=== PATIENT | female | born 1970 | race Caucasian/White ===

== ENCOUNTER 2017-10-01 15:58 | Inpatient (IN) | payer SELFPAY ==
[~2017-10-01] VITALS: Ht 157.5 cm; Wt 61.8 kg
[~2017-10-01 15:58] MED LIST: LACTATED RINGER'S 1000 ML INJ 3,000 ML IV ONE; NORMOSOL R INJ 1,000 ML IV ONE; PHENYLEPH/NS 1000 MCG/10 ML SYR IV ONE; PROPOFOL 200 MG/20 ML AMP IV ONE; SODIUM CHLORID 0.9% 500 ML INJ 1,000 ML IV ONE; SODIUM CHLORIDE 0.9% 20 ML VIAL IV ONE; STERILE WATER FOR INJECTION 20 ML VIAL IV ONE; SUCCINYLCHOLINE CHLORIDE 200 MG/10 ML VIAL IV ONE; VECURONIUM BROMIDE 20 MG VIAL IV ONE
[2017-10-01] MEDS ORDERED: ceFAZolin INJ 1,000 MG VIAL ONE ×2 (16:03→16:09)
[2017-10-01] MEDS ORDERED: DIPHTH/TETANUS/ACEL PERTUSSIS (BOOSTER) 0.5 ML VIAL/PFS IM ONE (16:03)
[2017-10-01] MEDS ORDERED: SODIUM CHLOR 0.9% 250 ML INJ 250 ML ONE (16:04)
[2017-10-01] MEDS ORDERED: PROPOFOL 500 MG/50 ML INJ 50 ML ONE (16:04)
[2017-10-01] MEDS ORDERED: GENTAMICIN 80 MG PREMIX 100 ML ONE (16:09)
[2017-10-01 16:15] VITALS: O2SAT 99
[2017-10-01] MEDS ORDERED: MIDAZOLAM HCL 5 MG/ML VIAL (1 ML) ONE (16:27)
[2017-10-01 16:33] LABS: HEMATOCRIT 33.2 % (35.0-46.0); HEMOGLOBIN 10.9 GM/DL (11.6-15.3); MEAN CELL VOLUME 92.5 FL (80.0-100.0); MEAN CORPUSCULAR HEMOGLOBIN 30.3 PG (27.0-34.0); MEAN CORPUSCULAR HGB CONC 32.7 % (32.0-36.0); MEAN PLATELET VOLUME 7.8 FL (7.0-11.0); PLATELET COUNT 194 TH/MM3 (150-450); RED BLOOD COUNT 3.59 MIL/MM3 (4.00-5.30); RED CELL DISTRIBUTION WIDTH 14.1 % (11.6-17.2); WHITE BLOOD COUNT 11.7 TH/MM3 (4.0-11.0)
[2017-10-01 16:42] LABS: INTERNATIONAL NORMALIZED RATIO 1.1 RATIO; PROTHROMBIN TIME - PATIENT 11.4 SEC (9.8-11.6)
[2017-10-01] MEDS ORDERED: HALOPERIDOL LACTATE 5 MG/ML AMP ONE (16:50)
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
[2017-10-01 17:05] LABS: BANDS 7 % (0-6); LYMPHOCYTES 15 % (9-44); METAMYELOCYTES 1 % (0-1); MONOCYTES 3 % (0-8); NEUTROPHIL # MANUAL DIFF 9.6 TH/MM3 (1.8-7.7); POLYS (SEG NEUTROPHILS) 74 % (16-70)
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
[2017-10-01 17:22] VITALS: BP 140/60; PULSE 114; RESP 18; O2SAT 99
[2017-10-01 17:25] VITALS: BP 140/60; PULSE 116; RESP 18; O2SAT 99
[2017-10-01] MEDS ORDERED: IODIXANOL 320 MG/ML 50 ML VIAL (for RAD SPEC) I-ARTERIAL ONE (17:30)
[2017-10-01] MEDS ORDERED: IOHEXOL 350 MG/ML 10 ML VIAL (for RAD DIAG) IVCONTRAST ONE (17:35)
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
[2017-10-01] MEDS ORDERED: LIDOCAINE 1%/EPINEPHrine 1:100,000 SOLN 30 ML VIAL ONE (17:38)
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
[2017-10-01] MEDS ORDERED: fentaNYL DRIP 250 ML IV PRN (20:00)
[2017-10-01] MEDS ORDERED: PROPOFOL 1000 MG/100 ML INJ 100 ML IV PRN (20:00)
[2017-10-01] MEDS ORDERED: Post-op Orders (for Pharmacy) XX ONE (20:00)
[2017-10-01] MEDS ORDERED: ONDANSETRON HCL 4 MG/2 ML VIAL IV PUSH PRN ×2 (20:00→21:00)
[2017-10-01] MEDS ORDERED: SODIUM CHLORIDE 0.9% FLUSH 10 ML FLUSH IV FLUSH PRN ×2 (20:00→21:00)
[2017-10-01] MEDS ORDERED: NALOXONE HCL 0.4 MG/ML AMP IV PUSH PRN ×2 (20:00→22:00)
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
[2017-10-01] MEDS ORDERED: VANCOMYCIN HCL 1000 MG VIAL ONE (20:12)
--- NOTE | 2017-10-01 20:17 | PD.RAD ---
Post Procedure Progress Note Pre Procedure Diagnosis: (1) Aortic rupture (2) Trauma Post Procedure Diagnosis: (1) Aortic rupture (2) Trauma Procedure Date: Oct 01, 2017 Supervising Radiologist: Junaid Delgado Estimated blood loss: 5cc Anesthesia: General, Local Plan of Activity Patient to Unit: Critical Care Patient Condition: Fair Additional Comments: Acute trauma patient with Ruptured thoracic aorta. Combine procedure with Dr. Bryan. Successful placement of a 24 x12 thoracic graft across the rupture Full dictated report to follow See PACS Report for procedural detail/treatment Junaid Delgado MD Oct 01, 2017 20:17
[2017-10-01] MEDS ORDERED: GENTAMICIN SULFATE 80 MG/2 ML VIAL ONE (20:31)
[2017-10-01] MEDS ORDERED: CHLORHEXIDINE GLUCONATE 2 % 1 PACK (2 CLOTHS) TOP PRN (21:00)
[2017-10-01] MEDS: SODIUM CHLORIDE 0.9% FLUSH 10 ML FLUSH IV FLUSH SCH (21:00)
[2017-10-01] MEDS ORDERED: MISCELLANEOUS NURSING INFORMATION XX SCH (21:00)
[2017-10-01] MEDS ORDERED: ENALAPRILAT 1.25 MG/ML VIAL IV PUSH PRN (21:00)
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
--- NOTE | 2017-10-01 21:04 | MP ---
cc: Caitlyn Bhatia MD DATE OF OPERATION: 10/01/2017 PREOPERATIVE DIAGNOSES: Thoracic aortic disruption, hemorrhagic shock, hemopericardium, hemothorax left. POSTOPERATIVE DIAGNOSES: Thoracic aortic disruption, hemorrhagic shock, hemopericardium, hemothorax left. PROCEDURE: Triple lumen placement, left subclavian. SURGEON: Caitlyn Bhatia MD ANESTHESIA: 1% Xylocaine. DESCRIPTION OF PROCEDURE: The patient was prepped and draped in usual fashion. The area infiltrated with 1% Xylocaine. Needle inserted left subclavian vein. Through the needle a J-wire was passed. Over the J wire dilated triple lumen placed. Triple lumen sutured in place with 2-0 silk. Chest x-ray was obtained. Caitlyn Bhatia MD SJ/rt , 08:15 PM , 09:03 PM
[2017-10-01] MEDS ORDERED: POTASSIUM CHLORIDE 25 MEQ EFFERVESCENT TAB PO PRN (21:15)
[2017-10-01] MEDS ORDERED: ICU - POTASSIUM PHOSPHATE MONOBASIC 500 MG TAB PO PRN (21:15)
[2017-10-01] MEDS ORDERED: ICU - SODIUM PHOSPHATE 30 MMOL/NS 250 ML IV PRN ×2 (21:15)
[2017-10-01] MEDS ORDERED: ICU - CALL ORDERING PHYSICIAN PRN (21:15)
[2017-10-01] MEDS ORDERED: ICU - MAGNESIUM OXIDE 400 MG TAB PO PRN (21:15)
[2017-10-01] MEDS ORDERED: ICU - MAGNESIUM SULFATE 4 GM/NS 100 ML IV PRN ×2 (21:15)
[2017-10-01] MEDS ORDERED: ICU - POTASSIUM PHOSPHATE 30 MMOL/NS 250 ML IV PRN ×2 (21:15)
[2017-10-01] MEDS ORDERED: ICU - MAGNESIUM SULFATE 2 GM/NS 100 ML IV PRN ×2 (21:15)
[2017-10-01] MEDS ORDERED: ICU - POTASSIUM CHLORIDE/AQUEOUS SOLN 20 MEQ/100 ML IVPB IV PRN (21:15)
[2017-10-01] MEDS ORDERED: ICU - POTASSIUM CHLORIDE/AQUEOUS SOLN 40 MEQ/100 ML IVPB IV PRN (21:15)
[2017-10-01] MEDS ORDERED: ICU - D/C ICU ELECTROLYTE ORDERS PRN (21:15)
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
--- NOTE | 2017-10-01 21:47 | PD.OP ---
cc: George Pastor MD Operative Report Date of Surgery: Oct 01, 2017 Preoperative Diagnosis: Right ankle open subtalar and talonavicular joints with irreducible dislocation Postoperative Diagnosis: Same plus calcaneal osteochondral fracture. Procedure: Right ankle/foot arthrotomy of subtalar and talonavicular joints with irrigation and debridement. Right ankle/foot open reduction of subtalar and talonavicular joints. Right calcaneus treatment of fracture with excision of osteochondral fragment. Right ankle application of multiplane external fixator. Surgeon: George Pastor Video Game Programmer(s): MARIBEL Bolaños The surgical procedure was assisted by my Advanced Registered Nurse Practitioner. My SEISMIC PROSPECTING SUPERVISOR presence was necessary throughout this case for the manipulation and positioning of the surgical extremity. My SEISMIC PROSPECTING SUPERVISOR was assisting me throughout the duration of this procedure. The skill set of an Advance Registered Nurse Practitioner was medically necessary to complete this procedure. During the surgical case, the safety tech was working at the back table and the Advance Registered Nurse Practitioner was directly assisting me. Operation and Findings: The patient had early been intubated. We were moving forward with emergency surgery based on a 2 physician consent since the patient was unable to provide consent herself. The patient was brought directly from special interventions where there was doing life-saving work on her aorta to the operating room for emergency management of the irreducible open dislocations as described above. The patient was given intravenous antibiotics to include Ancef, gentamicin, and vancomycin. On reviewing the exam of the ankle there was minimal contamination noted around the wound. The talus was still visible through the medial wound. The right lower extremity was prepped and draped in usual sterile fashion. We made further incision through the laceration that was on the medial aspect of the ankle. This laceration was approximately 10 cm. It was in a complex pattern. But mostly transverse was noted. We dissected more anteriorly as we knew this would be the area that was creating the irreversible dislocation. Arthrotomy of the talonavicular joint and subtalar joint was performed and revealed open dislocation of the talonavicular joint and subtalar joint. As we exposed the subtalar joint we found a fracture of the calcaneus that concluded cartilage and underlying bone. This measured 1 cm x 0.5 cm this was excised and was not replaced. We used a laparotomy pad to locally debride tissues. We identified venous structures anteriorly. We identified that the posterior tibial tendon and the flexor digitorum longus tendons were dislocated anteriorly around the talar neck. The flexor pollicis longus tendon was in its confed[place] sal[place] position. The talar head was buttonholed through the anterior retinaculum as well. We thoroughly irrigated the open joints and all of the soft tissues. We relocated the 2 dislocated tendons back into position. We found that the dislocations were still irreducible. We paid more attention at this point to the retinaculum and identified the buttonholing. We used a Brewster elevator to maneuver the soft tissue around the talar head. This then created anatomic reduction of the open dislocations. We verified this under fluoroscopy. We irrigated the foot and ankle again. We then identified significant traumatic rupture of the extensor retinaculum was the dislocations were reduced. The dislocations were unstable to manual testing and therefore we decided to move forward with external fixation. We placed 2 half pins in the tibia under standard technique. We placed a trans-calcaneal pin under standard technique. We placed a half pin into the first metatarsal on the fluoroscopic guidance. Pin depths were good. We then created a multiplanar external fixator by placing out dicer operator on the tibial half pins and creating parallel carbon fiber rods on the medial and lateral aspect of the ankle. We used another carbon fiber karolina in a different angular pattern compared to the other rods and secured this to the first metatarsal half pin. This helped keep the ankle out of equinus. The ankle was in neutral position in all planes. Final fluoroscopic imaging was obtained. We then closed the medial wound with a combination of 2-0 Monocryl and 3-0 nylon. Postoperative plan is for 3 days of intravenous antibiotics for the open fracture dislocations. She'll been initially nonweightbearing. We would expect the use of the frame for approximately 4-6 weeks depending on clinical course. George Pastor MD Oct 01, 2017 21:47
--- NOTE | 2017-10-01 21:49 | MP ---
cc: Caitlyn Bhatia MD, Slobodan MD DATE OF OPERATION: 10/01/2017 PREOPERATIVE DIAGNOSIS: Thoracic aortic disruption, hemothorax. POSTOPERATIVE DIAGNOSIS: Thoracic aortic disruption, hemothorax. PROCEDURE PERFORMED: Left tube thoracostomy. SURGEON: Caitlyn Bhatia MD. ANESTHESIA: General. ESTIMATED BLOOD LOSS: Minimal. DESCRIPTION OF PROCEDURE: The patient was prepped and draped in usual fashion. The area infiltrated with 1% Xylocaine. Needle incision made in the mid axillary line, sixth intercostal space, and deepened down to the chest. A 28-Marshallese chest tube placed, sutured in place with 0 silk and about 600 mL of blood was obtained. The patient tolerated the procedure well. Dressing applied. MD STEPHANIE Glover//diana , 08:14 PM , 09:10 PM
[2017-10-01] MEDS ORDERED: MORPHINE SULFATE 4 MG/ML INJ IV PUSH PRN (22:00)
[2017-10-01] MEDS ORDERED: diphenhydrAMINE HCL 25 MG CAP PO PRN (22:00)
[2017-10-01] MEDS ORDERED: ACETAMINOPHEN/HYDROcodone 325 MG/5 MG TAB PO PRN (22:00)
[2017-10-01] MEDS ORDERED: ONDANSETRON HCL 4 MG/2 ML VIAL IVP PRN (22:00)
--- NOTE | 2017-10-01 22:17 | RADRPT ---
EXAM DATE/TIME: 10/01/2017 21:09 [facility] COMPARISON: TIBIA/FIBULA RIGHT ( 1 VW), October 01, 2017, 15:51. ANKLE RIGHT LIMITED (AP&LAT), October 01, 2017, 15: 51. CT THORAX W CONTRAST, October 01, 2017, 16:52. INDICATIONS : Right ankle open reduction and internal fixation and external fixation. MEDICAL HISTORY : Unresponsive. SURGICAL HISTORY : Unresponsive. ENCOUNTER: Initial ACUITY: 1 day PAIN SCORE: Non-responsive. LOCATION: Right Ankle. FINDINGS: 7 images from the OR have been submitted. The ankle and subtalar joint appear well aligned. The patie nt is in an external fixator. CONCLUSION: Successful reduction of the previously seen subtalar dislocation. Olman Guaman MD on October 01, 2017 at 22:04 Board Certified Radiologist. This report was verified electronically.
[2017-10-01 22:30] VITALS: O2SAT 100
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
[2017-10-01] MEDS ORDERED: DO NOT ADM ANY ANTICOAGULANT DRUGS PRN (22:45)
[2017-10-01] MEDS ORDERED: MIDAZOLAM HCL 2 MG/2 ML VIAL ONE (22:46)
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
[2017-10-01] MEDS: PANTOPRAZOLE SODIUM 40 MG VIAL IV PUSH SCH (23:00)
[2017-10-01] MEDS: SODIUM CHLOR 0.9% 1000 ML INJ 1,000 ML IV SCH (23:15)
[2017-10-01] MEDS: PROPOFOL 1000 MG/100 ML IV PRN (23:27)
[2017-10-01] MEDS ORDERED: MORPHINE SULFATE 2 MG/ML SYRINGE ONE (23:38)
[2017-10-02] VITALS (21 sets, daily range): BP systolic 93–159; BP diastolic 43–69; PULSE 57–103; RESP 16–26; TEMP 97.6–99.4; O2SAT 98–100
[2017-10-02] MEDS ORDERED: MORPHINE SULFATE 2 MG/ML SYRINGE ONE ×2 (04:18→06:38)
--- NOTE | 2017-10-02 04:50 | RADRPT ---
EXAM DATE/TIME: 10/02/2017 04:19 [facility] COMPARISON: CHEST SINGLE AP, October 01, 2017, 15:51. INDICATIONS : Shortness of breath, possible pulmonary disease. MEDICAL HISTORY : None. SURGICAL HISTORY : None. ENCOUNTER: Subsequent ACUITY: 2 days PAIN SCORE: Non-responsive. LOCATION: Bilateral chest FINDINGS: Single AP view of the chest. Endotracheal tube is in place with the tip 2 cm above mariella. Nasogastri c tube is in place with the tip in the stomach. Descending thoracic aortic stent in place. Left-sided chest tube in place. Mild left lung base atelectasis. Lungs otherwise clear. No evidence of pneumoth orax or pleural effusion. CONCLUSION: 1. Descending aortic stent now in place. 2. Endotracheal tube, nasogastric tube, left-sided chest tube now seen. No evidence of pneumothorax. 3. Mild left lung base atelectasis. Mitch Taylor MD on October 02, 2017 at 4:47 Board Certified Radiologist. This report was verified electronically.
[2017-10-02] MEDS ORDERED: POTASSIUM CHLOR 20 MEQ PREMIX 100 ML IV PRN ×2 (06:15)
[2017-10-02] MEDS ORDERED: MAGNESIUM OXIDE 400 MG TAB PO PRN (06:15)
[2017-10-02] MEDS ORDERED: MAGNESIUM SULFATE INJ 4 GM in SODIUM CHLORIDE 0.9% INJ 92 ML IV PRN (06:15)
[2017-10-02] MEDS ORDERED: SODIUM PHOSPHATE INJ 30 MMOL in SODIUM CHLOR 0.9% 250 ML INJ 240 ML IV PRN (06:15)
[2017-10-02] MEDS ORDERED: POTASSIUM PHOSPHATE INJ 30 MMOL in SODIUM CHLOR 0.9% 250 ML INJ 250 ML IV PRN (06:15)
[2017-10-02] MEDS ORDERED: POTASSIUM CHLORIDE 25 MEQ EFFERVESCENT TAB PO PRN (06:15)
[2017-10-02] MEDS ORDERED: MAGNESIUM SULFATE INJ 2 GM in SODIUM CHLORIDE 0.9% INJ 96 ML IV PRN (06:15)
[2017-10-02] MEDS ORDERED: BISACODYL 10 MG SUPP RECTAL PRN (06:15)
[2017-10-02] MEDS ORDERED: POTASSIUM CHLOR 40 MEQ PREMIX 100 ML IV PRN ×2 (06:15)
[2017-10-02] MEDS ORDERED: POTASSIUM PHOSPHATE MONOBASIC 500 MG TAB PO/TUBE PRN (06:15)
[2017-10-02] MEDS ORDERED: POTASSIUM PHOSPHATE MONOBASIC 500 MG TAB PO PRN (06:15)
[2017-10-02] MEDS: SODIUM CHLOR 0.9% 1000 ML INJ 1,000 ML IV SCH (07:15)
[2017-10-02] MEDS: RESP: ALBUTEROL 2.5 MG/IPRATROPIUM 0.5 MG NEB (SCH) NEB ×4 (07:50→19:57)
[2017-10-02] MEDS: CHLORHEXIDINE 0.12% (ORAL KIT) 15 ML CUP MT SCH ×2 (08:00→20:00)
[2017-10-02 08:37] LABS: AUTOMATED NEUTROPHIL # 7.1 TH/MM3 (1.8-7.7); BASOPHIL % 0.3 % (0.0-2.0); HEMATOCRIT 29.7 % (35.0-46.0); HEMOGLOBIN 10.3 GM/DL (11.6-15.3); LYMPH % 9.6 % (9.0-44.0); LYMPHOCYTE # 0.8 TH/MM3 (1.0-4.8); MEAN CELL VOLUME 89.4 FL (80.0-100.0); MEAN CORPUSCULAR HEMOGLOBIN 31.2 PG (27.0-34.0); MEAN CORPUSCULAR HGB CONC 34.9 % (32.0-36.0); MEAN PLATELET VOLUME 7.6 FL (7.0-11.0); MONO % 8.5 % (0.0-8.0); MONOCYTE # 0.7 TH/MM3 (0-0.9); NEUT % 81.6 % (16.0-70.0); PLATELET COUNT 124 TH/MM3 (150-450); RED BLOOD COUNT 3.32 MIL/MM3 (4.00-5.30); RED CELL DISTRIBUTION WIDTH 14.6 % (11.6-17.2); WHITE BLOOD COUNT 8.7 TH/MM3 (4.0-11.0)
[2017-10-02 08:56] LABS: MAGNESIUM 1.6 MG/DL (1.5-2.5); PHOSPHORUS 3.4 MG/DL (2.5-4.9)
[2017-10-02 09:00] LABS: BICARBONATE 22.2 MEQ/L (21.0-32.0); CALCIUM 6.9 MG/DL (8.5-10.1); CREATININE 0.64 MG/DL (0.50-1.00)
[2017-10-02] MEDS: LACTULOSE SYRUP 20 GM/30 ML CUP PO SCH (09:00)
[2017-10-02] MEDS: BACITRACIN TOP OINT 15 GM TUBE TOP SCH ×2 (09:00→20:27)
[2017-10-02] MEDS: DOCUSATE SODIUM 50 MG/SENNA 8.6 MG TAB PO SCH ×2 (09:00→20:26)
[2017-10-02] MEDS: SODIUM CHLORIDE 0.9% FLUSH 10 ML FLUSH IV FLUSH SCH ×2 (09:00→20:27)
[2017-10-02] MEDS: MULTIVITAMINS/MINERALS THERAPEUTIC TAB PO SCH (09:00)
[2017-10-02 09:36] LABS: CALCIUM-PROTEIN CORRECTED 8.3 MG/DL (8.5-10.1); TOTAL PROTEIN 4.5 GM/DL (6.4-8.2)
[2017-10-02] MEDS ORDERED: LIDOCAINE 2%/EPINEPHrine 1:100,000 20ML MDV OTHER SCH (10:00)
--- NOTE | 2017-10-02 10:01 | PD.ORT.PN ---
Subjective Subjective Remarks The patient is intubated and sedated. There is a family member at the bedside Objective Vitals Vital Signs Date Time Temp Pulse Resp B/P (MAP) Pulse Ox O2 Delivery O2 Flow Rate FiO2 10/02/17 09:11 99 40 10/02/17 08:15 40 10/02/17 08:01 100 40 10/02/17 08:00 62 10 98/55 (69) 100 Mechanical Ventilator 40 109/52 (71) 10/02/17 07:45 64 10 100 Mechanical Ventilator 40 114/55 (74) 10/02/17 07:30 62 10 97/51 (66) 100 Mechanical Ventilator 40 102/46 (64) 10/02/17 07:15 97.7 66 10 105/47 (66) 100 Mechanical Ventilator 40 10/02/17 07:15 40 10/02/17 07:00 64 10 115/58 (77) 100 Mechanical Ventilator 40 112/63 (79) 10/02/17 06:52 65 12 101/48 (65) 100 Mechanical Ventilator 40 10/02/17 06:00 59 108/58 (75) 10/02/17 06:00 74 12 102/54 (70) 100 Mechanical Ventilator 40 10/02/17 06:00 40 10/02/17 05:15 100 40 10/02/17 05:00 66 12 99/61 (74) 100 Mechanical Ventilator 40 10/02/17 05:00 59 108/58 (75) 10/02/17 04:25 59 108/58 (75) 10/02/17 04:01 40 10/02/17 04:00 66 12 104/58 (73) 100 Mechanical Ventilator 40 10/02/17 03:00 59 12 103/61 (75) 100 Mechanical Ventilator 40 10/02/17 03:00 59 108/58 (75) 10/02/17 02:01 40 10/02/17 02:00 65 12 106/54 (71) 100 Mechanical Ventilator 40 10/02/17 02:00 59 108/58 (75) 10/02/17 01:30 100 40 10/02/17 01:00 65 12 105/63 (77) 100 Mechanical Ventilator 40 10/02/17 01:00 60 113/64 (80) 10/02/17 00:00 65 12 122/68 (86) 100 Mechanical Ventilator 40 10/02/17 00:00 40 10/02/17 00:00 64 127/66 (86) 10/01/17 23:45 65 12 124/69 (87) 100 Mechanical Ventilator 40 10/01/17 23:30 65 12 127/70 (89) 100 Mechanical Ventilator 40 10/01/17 23:15 65 14 112/65 (81) 100 Mechanical Ventilator 40 10/01/17 23:00 40 10/01/17 23:00 66 14 95/61 (72) 100 Mechanical Ventilator 40 10/01/17 22:45 98.0 70 11 142/79 (100) 100 Mechanical Ventilator 40 10/01/17 22:30 100 40 10/01/17 18:59 10/01/17 17:25 116 18 140/60 (86) 99 Room Air 10/01/17 17:22 114 18 140/60 (86) 99 10/01/17 16:15 99 2.00 I/O 10/01/17 10/01/17 10/01/17 10/02/17 10/02/17 10/02/17 07:00 15:00 23:00 07:00 15:00 23:00 Intake Total 1025 ml 607.5 ml Output Total 1215 ml 1450 ml 150 ml Balance -190 ml -1450 ml 457.5 ml Intake IV Total 207.5 ml Packed Cells 400 ml Blood Product IV Normal Saline Flush 25 ml Other 1000 ml Output Urine Total 1200 ml 1350 ml 100 ml Gastric Drainage Total 50 ml Chest Tube Drainage Total 100 ml 0 ml Estimated Blood Loss 15 ml Result Diagram: 10/02/17 0713 10/02/17 0713 Other Results Laboratory Tests Test 10/01/17 16:02 Prothromb Time International Ratio 1.1 RATIO Prothrombin Time 11.4 SEC (9.8-11.6) Imaging Last 24 hours Impressions Chest X-Ray 10/02/17 0000 Signed Impressions: Service Date/Time: Monday, October 02, 2017 04:19 - CONCLUSION: 1. Descending aortic stent now in place. 2. Endotracheal tube, nasogastric tube, left-sided chest tube now seen. No evidence of pneumothorax. 3. Mild left lung base atelectasis. Mitch Taylor MD Thoracic Spine CT 10/01/17 1608 Signed Impressions: Service Date/Time: Sunday, October 01, 2017 16:52 - CONCLUSION: 1. Negative thoracic spine CT examination. 2. There is an thoracic aortic injury more fully described in the CT of the chest report. Olman Guaman MD Maxillofacial CT 10/01/171607 Signed Impressions: Service Date/Time: Sunday, October 01, 2017 16:32 - CONCLUSION: 1. Right- sided facial and forehead soft tissue swelling 2. No evidence of acute fracture. 3. Clear, well aerated paranasal sinuses. Marcin Mccord MD Lumbar Spine CT 10/01/171607 Signed Impressions: Service Date/Time: Sunday, October 01, 2017 16:52 - CONCLUSION: 1. No acute fracture of the lumbar spine identified. Junaid Delgado MD Head CT 10/01/171607 Signed Impressions: Service Date/Time: Sunday, October 01, 2017 16:32 - CONCLUSION: 1. Right frontal and parietal scalp injury with soft tissue swelling and cephalhematoma. 2. No evidence of acute intracranial process. No evidence of hemorrhage, mass effect or edema. Marcin Mccord MD Chest CT 10/01/171607 Signed Impressions: Service Date/Time: Sunday, October 01, 2017 16:52 - CONCLUSION: 1. 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 Extravasated contrast extends the entire length of the descending thoracic aorta. Significant mediastinal hematoma is noted. 2. Small hemorrhagic pericardial effusion 3. Left lung contusion versus atelectasis. 4. Left pleural effusion which may represent hemothorax. 5. Multiple right-sided rib fractures. Case discussed with trauma surgeon. Marcin Mccord MD Cervical Spine CT 10/01/171607 Signed Impressions: Service Date/Time: Sunday, October 01, 2017 16:32 - CONCLUSION: 1. No cervical abnormality is seen. However, there is patient motion blurring. 2. Aortic injury. Olman Guaman MD Abdomen/Pelvis CT 10/01/171607 Signed Impressions: Service Date/Time: Sunday, October 01, 2017 16:52 - CONCLUSION: 1. 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 The trauma surgical service is aware of this. Endograft repair of the aorta is pending. 2. There is a small amount hemorrhage within the pericardium. 3. Fracture of the right fifth and sixth ribs. 4. No findings to indicate acute intra-abdominal trauma are evident. Junaid Delgado MD Pelvis X-Ray 10/01/17 1600 Signed Impressions: Service Date/Time: Sunday, October 01, 2017 15:51 - CONCLUSION: No acute disease. Marcin Mccord MD Chest X-Ray 10/01/17 1600 Signed Impressions: Service Date/Time: Sunday, October 01, 2017 15:51 - CONCLUSION: Superior mediastinal widening. Mediastinal hematoma and/or aortic injury needs to be considered. Clear lungs without evidence of pneumothorax. No acute bony injury. Marcin Mccord MD Objective Remarks Intubated. Right lower extremity: External fixator intact, dressings intact with no drainage, compartment soft, brisk capillary refill of all 5 toes, mild swelling of the toes. Secondary survey of left knee and ankle and hip unremarkable. Secondary survey of bilateral elbows wrists and shoulders fairly unremarkable but still difficult to examine very well due to multiple lines and swelling. Assessment & Plan Assessment and Plan Postop day #1 status post right foot/ankle arthrotomy with open reduction of irreducible subtalar and talonavicular dislocation with application of external fixator. Continue with intravenous antibiotics for 3 days for open dislocation. Continue with external fixator for right lower extremity. Continue dressings on right lower extremity. We'll assess the wound in a day or 2. DVT prophylaxis per vascular surgery given recent procedure on aorta. Nonweightbearing to right lower extremity. Continue ice and elevation of right lower extremity. George Pastor MD Oct 02, 2017 10:01
[2017-10-02] MEDS: PROPOFOL 1000 MG/100 ML IV PRN (11:07)
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
[2017-10-02] MEDS ORDERED: SODIUM CHLOR 0.9% 1000 ML INJ 1,000 ML IV SCH (16:30)
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
[2017-10-02] MEDS: ACETAMINOPHEN/HYDROcodone 325 MG/5 MG TAB PO PRN (20:26)
[2017-10-02] MEDS: PANTOPRAZOLE SODIUM 40 MG VIAL IV PUSH SCH (20:27)
[2017-10-02] MEDS: levETIRAcetam INJ 500 MG in SODIUM CHLORIDE 0.9% INJ 100 ML IV SCH (20:27)
[2017-10-02] MEDS: CHLORHEXIDINE GLUCONATE 2 % 1 PACK (2 CLOTHS) TOP SCH (21:38)
[2017-10-03] VITALS (11 sets, daily range): BP systolic 94–137; BP diastolic 50–68; PULSE 88–123; RESP 14–27; TEMP 97.7–101.2; O2SAT 93–100
[2017-10-03] MEDS: ACETAMINOPHEN/HYDROcodone 325 MG/5 MG TAB PO PRN ×4 (00:45→23:46)
[2017-10-03] MEDS: MORPHINE SULFATE 4 MG/ML INJ IV PUSH PRN ×2 (02:34→06:41)
[2017-10-03] MEDS: RESP: ALBUTEROL 2.5 MG/IPRATROPIUM 0.5 MG NEB (SCH) NEB ×4 (03:54→20:30)
--- NOTE | 2017-10-03 05:26 | RADRPT ---
EXAM DATE/TIME: 10/03/2017 04:51 [facility] COMPARISON: CHEST SINGLE AP, October 02, 2017, 4:19. INDICATIONS : Short of breath. MEDICAL HISTORY : None. SURGICAL HISTORY : None. ENCOUNTER: Subsequent ACUITY: 3 days PAIN SCORE: 0/10 LOCATION: Bilateral chest FINDINGS: A single view of the chest demonstrates bilateral airspace disease. Probable bilateral pleural effusi ons. Left-sided chest tube without pneumothorax. Stent graft in the thoracic aorta. Endotracheal tube and nasogastric tube removed. Osseous structures are intact. CONCLUSION: Bilateral airspace disease and probable pleural effusions. Eulalio Abbott MD on October 03, 2017 at 5:23 Board Certified Radiologist. This report was verified electronically.
[2017-10-03 07:02] LABS: AUTOMATED NEUTROPHIL # 10.4 TH/MM3 (1.8-7.7); BASOPHIL % 0.3 % (0.0-2.0); EOSINOPHIL % 0.1 % (0.0-4.0); HEMATOCRIT 28.2 % (35.0-46.0); HEMOGLOBIN 9.8 GM/DL (11.6-15.3); LYMPH % 9.4 % (9.0-44.0); LYMPHOCYTE # 1.2 TH/MM3 (1.0-4.8); MEAN CELL VOLUME 90.4 FL (80.0-100.0); MEAN CORPUSCULAR HEMOGLOBIN 31.3 PG (27.0-34.0); MEAN CORPUSCULAR HGB CONC 34.6 % (32.0-36.0); MEAN PLATELET VOLUME 7.9 FL (7.0-11.0); MONO % 8.4 % (0.0-8.0); MONOCYTE # 1.1 TH/MM3 (0-0.9); NEUT % 81.8 % (16.0-70.0); PLATELET COUNT 119 TH/MM3 (150-450); RED BLOOD COUNT 3.12 MIL/MM3 (4.00-5.30); RED CELL DISTRIBUTION WIDTH 14.5 % (11.6-17.2); WHITE BLOOD COUNT 12.7 TH/MM3 (4.0-11.0)
[2017-10-03 07:12] LABS: BICARBONATE 25.9 MEQ/L (21.0-32.0); CALCIUM 7.7 MG/DL (8.5-10.1); CREATININE 0.7 MG/DL (0.50-1.00)
[2017-10-03] MEDS: CHLORHEXIDINE 0.12% (ORAL KIT) 15 ML CUP MT SCH (08:00)
[2017-10-03] MEDS: levETIRAcetam INJ 500 MG in SODIUM CHLORIDE 0.9% INJ 100 ML IV SCH ×2 (08:06→19:39)
[2017-10-03] MEDS: MULTIVITAMINS/MINERALS THERAPEUTIC TAB PO SCH (08:07)
[2017-10-03] MEDS: LACTULOSE SYRUP 20 GM/30 ML CUP PO SCH (08:07)
[2017-10-03] MEDS: BACITRACIN TOP OINT 15 GM TUBE TOP SCH ×2 (08:07→19:39)
[2017-10-03] MEDS: SODIUM CHLORIDE 0.9% FLUSH 10 ML FLUSH IV FLUSH SCH ×2 (08:07→19:39)
[2017-10-03] MEDS: DOCUSATE SODIUM 50 MG/SENNA 8.6 MG TAB PO SCH ×2 (08:07→19:39)
[2017-10-03] MEDS ORDERED: PADIMATE (CHAPSTICK) 4.5 GM TUBE TOPICAL ONE (10:00)
--- NOTE | 2017-10-03 12:33 | PD.ORT.PN ---
Subjective Post Op Day #: 2 Subjective Remarks Patient OOB in chair with c/o pain to her entire body. Pain is being managed with meds. Family/friends at bedside. Objective Vitals Vital Signs Date Time Temp Pulse Resp B/P (MAP) Pulse Ox O2 Delivery O2 Flow Rate FiO2 10/03/17 08:31 97 10/03/17 08:00 98.5 104 18 131/63 (85) 100 10/03/17 08:00 Nasal Cannula 2.00 10/03/17 06:46 20 10/03/17 04:00 98.4 88 23 112/55 (74) 100 Arterial Line 10/03/17 01:45 20 10/03/17 00:00 101.2 96 23 109/54 (72) 96 124/50 (74) 10/02/17 20:00 Room Air 10/02/17 20:00 85 10/02/17 20:00 99.4 103 22 95/58 (70) 100 159/59 (92) 10/02/17 19:57 99 10/02/17 18:00 94 10/02/17 16:00 100 10/02/17 16:00 97.8 100 26 157/69 (98) 99 10/02/17 14:32 100 Nasal Cannula 2 10/02/17 14:32 100 Nasal Cannula 2.00 10/02/17 14:00 94 10/02/17 13:45 Nasal Cannula 40 I/O 10/02/17 10/02/17 10/02/17 10/03/17 10/03/17 10/03/17 07:00 15:00 23:00 07:00 15:00 23:00 Intake Total 707.5 ml 1105 ml 340 ml Output Total 1450 ml 150 ml 995 ml 1300 ml Balance -1450 ml 557.5 ml 110 ml -960 ml Intake Oral 0 ml 240 ml IV Total 307.5 ml 1105 ml 100 ml Packed Cells 400 ml Output Urine Total 1350 ml 100 ml 725 ml 1300 ml Gastric Drainage Total 50 ml 0 ml Chest Tube Drainage Total 100 ml 0 ml 270 ml 0 ml # Bowel Movements 0 0 Result Diagram: 10/03/1723 10/03/1723 Imaging Last 24 hours Impressions Chest X-Ray 10/02/17 0000 Signed Impressions: Service Date/Time: Monday, October 02, 2017 04:19 - CONCLUSION: 1. Descending aortic stent now in place. 2. Endotracheal tube, nasogastric tube, left-sided chest tube now seen. No evidence of pneumothorax. 3. Mild left lung base atelectasis. Mitch Taylor MD Thoracic Spine CT 10/01/171607 Signed Impressions: Service Date/Time: Sunday, October 01, 2017 16:52 - CONCLUSION: 1. Negative thoracic spine CT examination. 2. There is an thoracic aortic injury more fully described in the CT of the chest report. Olman Guaman MD Maxillofacial CT 10/01/171607 Signed Impressions: Service Date/Time: Sunday, October 01, 2017 16:32 - CONCLUSION: 1. Right- sided facial and forehead soft tissue swelling 2. No evidence of acute fracture. 3. Clear, well aerated paranasal sinuses. Marcin Mccord MD Lumbar Spine CT 10/01/171607 Signed Impressions: Service Date/Time: Sunday, October 01, 2017 16:52 - CONCLUSION: 1. No acute fracture of the lumbar spine identified. Junaid Delgado MD Head CT 10/01/171607 Signed Impressions: Service Date/Time: Sunday, October 01, 2017 16:32 - CONCLUSION: 1. Right frontal and parietal scalp injury with soft tissue swelling and cephalhematoma. 2. No evidence of acute intracranial process. No evidence of hemorrhage, mass effect or edema. Marcin Mccord MD Chest CT 10/01/171607 Signed Impressions: Service Date/Time: Sunday, October 01, 2017 16:52 - CONCLUSION: 1. 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 Extravasated contrast extends the entire length of the descending thoracic aorta. Significant mediastinal hematoma is noted. 2. Small hemorrhagic pericardial effusion 3. Left lung contusion versus atelectasis. 4. Left pleural effusion which may represent hemothorax. 5. Multiple right-sided rib fractures. Case discussed with trauma surgeon. Marcin Mccord MD Cervical Spine CT 10/01/171607 Signed Impressions: Service Date/Time: Sunday, October 01, 2017 16:32 - CONCLUSION: 1. No cervical abnormality is seen. However, there is patient motion blurring. 2. Aortic injury. Olman Guaman MD Abdomen/Pelvis CT 10/01/17 1608 Signed Impressions: Service Date/Time: Sunday, October 01, 2017 16:52 - CONCLUSION: 1. 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 The trauma surgical service is aware of this. Endograft repair of the aorta is pending. 2. There is a small amount hemorrhage within the pericardium. 3. Fracture of the right fifth and sixth ribs. 4. No findings to indicate acute intra-abdominal trauma are evident. Junaid Delgado MD Pelvis X-Ray 10/01/17 1600 Signed Impressions: Service Date/Time: Sunday, October 01, 2017 15:51 - CONCLUSION: No acute disease. Marcin Mccord MD Chest X-Ray 10/01/17 1600 Signed Impressions: Service Date/Time: Sunday, October 01, 2017 15:51 - CONCLUSION: Superior mediastinal widening. Mediastinal hematoma and/or aortic injury needs to be considered. Clear lungs without evidence of pneumothorax. No acute bony injury. Marcin Mccord MD Objective Remarks Patient extubated and talkative. Patient is alert and oriented but does not recall specifics of accident. Right lower extremity: External fixator intact. Dressings changed today. Incisions are well approximated with minimal drainage. Sutures are intact. No redness or s/s of infection. Compartment soft, brisk capillary refill of all 5 toes, mild swelling of the toes. 2 + pedal pulse. Foot is warm. Patient able to move toes. Patient has swelling to the face and head. Multiple areas of ecchymosis. Assessment & Plan Ortho Post Op Day #: 2 Problem List: Assessment and Plan Postop day #2 status post right foot/ankle arthrotomy with open reduction of irreducible subtalar and talonavicular dislocation with application of external fixator. Continue with intravenous antibiotics for 3 days for open dislocation. Continue with external fixator for right lower extremity. Continue with daily dressing changes to the right lower extremity. Verbalized Lovenox for DVT prophylaxis per vascular surgeon. No order in chart. Nurse to f/u to see when to initiate this. Nonweightbearing to right lower extremity. Continue ice and elevation of right lower extremity. Plan is for return to surgery in 4-6 weeks for removal of ex-fix. Junaid Davis Oct 03, 2017 12:33
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
[2017-10-03] MEDS: CHLORHEXIDINE GLUCONATE 2 % 1 PACK (2 CLOTHS) TOP SCH (19:33)
[2017-10-03] MEDS: PANTOPRAZOLE SODIUM 40 MG VIAL IV PUSH SCH (19:55)
[2017-10-04] VITALS (7 sets, daily range): BP systolic 106–131; BP diastolic 56–74; PULSE 81–110; RESP 16–20; TEMP 97.4–98.1; O2SAT 93–100
[2017-10-04 04:45] LABS: AUTOMATED NEUTROPHIL # 9.2 TH/MM3 (1.8-7.7); BASOPHIL % 0.4 % (0.0-2.0); EOSINOPHIL % 0.2 % (0.0-4.0); HEMATOCRIT 26.8 % (35.0-46.0); HEMOGLOBIN 9.4 GM/DL (11.6-15.3); LYMPH % 8.1 % (9.0-44.0); LYMPHOCYTE # 0.9 TH/MM3 (1.0-4.8); MEAN CELL VOLUME 89.6 FL (80.0-100.0); MEAN CORPUSCULAR HEMOGLOBIN 31.5 PG (27.0-34.0); MEAN CORPUSCULAR HGB CONC 35.1 % (32.0-36.0); MEAN PLATELET VOLUME 8.2 FL (7.0-11.0); MONO % 7.2 % (0.0-8.0); MONOCYTE # 0.8 TH/MM3 (0-0.9); NEUT % 84.1 % (16.0-70.0); PLATELET COUNT 111 TH/MM3 (150-450); RED BLOOD COUNT 2.99 MIL/MM3 (4.00-5.30); RED CELL DISTRIBUTION WIDTH 14.4 % (11.6-17.2); WHITE BLOOD COUNT 10.9 TH/MM3 (4.0-11.0)
[2017-10-04 04:46] LABS: BICARBONATE 25.5 MEQ/L (21.0-32.0); CALCIUM 8.2 MG/DL (8.5-10.1); CREATININE 0.59 MG/DL (0.50-1.00)
[2017-10-04] MEDS ORDERED: ACETAMINOPHEN/HYDROcodone 325 MG/10 MG TAB PO PRN (05:45)
[2017-10-04] MEDS: METHOCARBAMOL 500 MG TAB PO SCH ×3 (06:35→22:02)
[2017-10-04] MEDS ORDERED: POTASSIUM CHLORIDE 20 MEQ CONTROLLED RELEASE TAB PO ONE (08:00)
[2017-10-04] MEDS: RESP: ALBUTEROL 2.5 MG/IPRATROPIUM 0.5 MG NEB (SCH) NEB ×4 (08:00→21:10)
[2017-10-04] MEDS: LACTULOSE SYRUP 20 GM/30 ML CUP PO SCH (08:58)
[2017-10-04] MEDS: DOCUSATE SODIUM 50 MG/SENNA 8.6 MG TAB PO SCH ×2 (08:59→22:01)
[2017-10-04] MEDS: BACITRACIN TOP OINT 15 GM TUBE TOP SCH ×2 (09:00→21:00)
[2017-10-04] MEDS: GABAPENTIN 300 MG CAP PO SCH ×3 (09:02→18:42)
[2017-10-04] MEDS: levETIRAcetam 500 MG TAB PO SCH ×2 (09:04→22:02)
[2017-10-04] MEDS: SODIUM CHLORIDE 0.9% FLUSH 10 ML FLUSH IV FLUSH SCH ×2 (09:04→22:08)
[2017-10-04] MEDS: LIDOCAINE HCL 5% PATCH T-DERMAL SCH (09:05)
[2017-10-04] MEDS: MULTIVITAMINS/MINERALS THERAPEUTIC TAB PO SCH (09:08)
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
[2017-10-04] MEDS: ENOXAPARIN SODIUM 40 MG/0.4 ML SYRINGE SQ SCH (13:48)
--- NOTE | 2017-10-04 16:43 | ECHRPT ---
Indication: CONCLUSIONS The left ventricular systolic function is hyperdynamic with an estimated ejection fraction in the ra nge of 65- 70%. No definite wall motion abnormalities. Wall thickness is normal. Normal left ventricular size. There is trace tricuspid valve regurgitation. BP: / HR: Rhythm: Sinus MEASUREMENTS (Male / Female) Normal Values Technical Quality:Good 2D ECHO LV Diastolic Diameter PLAX 3.9 cm 4.2 - 5.9 / 3.9 - 5.3 cm LV Systolic Diameter PLAX 2.7 cm IVS Diastolic Thickness 1.0 cm 0.6 - 1.0 / 0.6 - 0.9 cm LVPW Diastolic Thickness 1.0 cm 0.6 - 1.0 / 0.6 - 0.9 cm LV Relative Wall Thickness 0.5 RV Internal Dim ED PLAX 2.3 cm LVOT Diameter 1.7 cm Aortic Root Diameter 2.4 cm LA Systolic Diameter LX 2.5 cm 3.0 - 4.0 / 2.7 - 3.8 cm M-MODE Aortic Root Diameter MM 1.5 cm LA Systolic Diameter MM 2.5 cm LA Ao Ratio MM 1.7 AV Cusp Separation MM 1.5 cm DOPPLER TR Peak Velocity 128.0 cm/s TR Peak Gradient 6.6 mmHg Right Atrial Pressure 10.0 mmHg Pulmonary Artery Systolic Pressu 16.6 mmHg Right Ventricular Systolic Press 16.6 mmHg PV Peak Velocity 111.0 cm/s PV Peak Gradient 4.9 mmHg FINDINGS LEFT VENTRICLE The left ventricular systolic function is hyperdynamic with an estimated ejection fraction in the ra nge of 65- 70%. No definite wall motion abnormalities. Wall thickness is normal. Normal left ventricular size. RIGHT VENTRICLE Normal right ventricular size and systolic function. LEFT ATRIUM The left atrial size is normal. RIGHT ATRIUM The right atrial size is normal. ATRIAL SEPTUM Normal atrial septal thickness without atrial level shunting by limited color doppler interrogation. AORTA The aortic root and proximal ascending aorta are normal in size on limited imaging. MITRAL VALVE Structurally normal mitral valve. No mitral valve stenosis or regurgitation. AORTIC VALVE Trileaflet aortic valve. No aortic valve stenosis or regurgitation. TRICUSPID VALVE There is trace tricuspid valve regurgitation. PULMONARY VALVE No pulmonary valve regurgitation or stenosis. VESSELS The inferior vena cava is normal in size. PERICARDIUM No pericardial effusion. Torito Matthew MD (Electronically Signed) Final Date:04 October 2017 16:42
--- NOTE | 2017-10-04 18:20 | PD.ORT.PN ---
Subjective Subjective Remarks Pt extubated. Awake. family at bedside. does not complain of other ortho pain about B upper arms or left leg. no numbness to right foot Objective Vitals Vital Signs Date Time Temp Pulse Resp B/P (MAP) Pulse Ox O2 Delivery O2 Flow Rate FiO2 10/04/17 16:00 97.4 107 16 126/63 (84) 99 10/04/17 12:00 97.9 81 16 116/59 (78) 100 10/04/17 08:00 97.8 109 16 131/60 (83) 93 10/04/17 08:00 93 Nasal Cannula 2.00 10/04/17 04:00 98.1 87 18 106/58 (74) 100 10/04/17 00:00 98.0 105 18 124/56 (78) 100 10/03/17 21:25 99.2 98 18 137/65 (89) 100 10/03/17 20:32 100 Nasal Cannula 2.00 10/03/17 20:00 98.2 123 27 133/68 (89) 97 10/03/17 20:00 123 10/03/17 19:00 Nasal Cannula 3.00 I/O 10/03/17 10/03/17 10/03/17 10/04/17 10/04/17 10/04/17 07:00 15:00 23:00 07:00 15:00 23:00 Intake Total 340 ml 205 ml 360 ml 340 ml 100 ml 720 ml Output Total 1300 ml 1900 ml 0 ml Balance -960 ml 205 ml -1540 ml 340 ml 100 ml 720 ml Intake Oral 240 ml 360 ml 240 ml 720 ml IV Total 100 ml 205 ml 100 ml 100 ml Output Urine Total 1300 ml 1900 ml Chest Tube Drainage Total 0 ml 0 ml 0 ml # Voids 1 2 # Bowel Movements 0 0 0 0 Result Diagram: 10/04/17 0313 10/04/17 0313 Imaging Last 24 hours Impressions Chest X-Ray 10/02/17 0000 Signed Impressions: Service Date/Time: Monday, October 02, 2017 04:19 - CONCLUSION: 1. Descending aortic stent now in place. 2. Endotracheal tube, nasogastric tube, left-sided chest tube now seen. No evidence of pneumothorax. 3. Mild left lung base atelectasis. Mitch Taylor MD Thoracic Spine CT 4/7/18 1608 Signed Impressions: Service Date/Time: Sunday, October 01, 2017 16:52 - CONCLUSION: 1. Negative thoracic spine CT examination. 2. There is an thoracic aortic injury more fully described in the CT of the chest report. Olman Guaman MD Maxillofacial CT 10/01/171607 Signed Impressions: Service Date/Time: Sunday, October 01, 2017 16:32 - CONCLUSION: 1. Right- sided facial and forehead soft tissue swelling 2. No evidence of acute fracture. 3. Clear, well aerated paranasal sinuses. Marcin Mccord MD Lumbar Spine CT 10/01/171607 Signed Impressions: Service Date/Time: Sunday, October 01, 2017 16:52 - CONCLUSION: 1. No acute fracture of the lumbar spine identified. Junaid Delgado MD Head CT 10/01/171607 Signed Impressions: Service Date/Time: Sunday, October 01, 2017 16:32 - CONCLUSION: 1. Right frontal and parietal scalp injury with soft tissue swelling and cephalhematoma. 2. No evidence of acute intracranial process. No evidence of hemorrhage, mass effect or edema. Marcin Mccord MD Chest CT 10/01/171607 Signed Impressions: Service Date/Time: Sunday, October 01, 2017 16:52 - CONCLUSION: 1. 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 Extravasated contrast extends the entire length of the descending thoracic aorta. Significant mediastinal hematoma is noted. 2. Small hemorrhagic pericardial effusion 3. Left lung contusion versus atelectasis. 4. Left pleural effusion which may represent hemothorax. 5. Multiple right-sided rib fractures. Case discussed with trauma surgeon. Marcin Mccord MD Cervical Spine CT 10/01/171607 Signed Impressions: Service Date/Time: Sunday, October 01, 2017 16:32 - CONCLUSION: 1. No cervical abnormality is seen. However, there is patient motion blurring. 2. Aortic injury. Olman Guaman MD Abdomen/Pelvis CT 10/01/171607 Signed Impressions: Service Date/Time: Sunday, October 01, 2017 16:52 - CONCLUSION: 1. 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 The trauma surgical service is aware of this. Endograft repair of the aorta is pending. 2. There is a small amount hemorrhage within the pericardium. 3. Fracture of the right fifth and sixth ribs. 4. No findings to indicate acute intra-abdominal trauma are evident. Junaid Delgado MD Pelvis X-Ray 10/01/17 1600 Signed Impressions: Service Date/Time: Sunday, October 01, 2017 15:51 - CONCLUSION: No acute disease. Marcin Mccord MD Chest X-Ray 10/01/17 1600 Signed Impressions: Service Date/Time: Sunday, October 01, 2017 15:51 - CONCLUSION: Superior mediastinal widening. Mediastinal hematoma and/or aortic injury needs to be considered. Clear lungs without evidence of pneumothorax. No acute bony injury. Marcin Mccord MD Objective Remarks Patient extubated and talkative. Patient is alert and oriented but does not recall specifics of accident. Right lower extremity: External fixator intact. No redness or s/s of infection surrounding wound. Compartment soft, brisk capillary refill of all 5 toes, mild swelling of the toes. 2 + pedal pulse. Foot is warm. Patient able to move toes. nl sensation to dorsal and plantar foot Patient has swelling to the face and head. Multiple areas of ecchymosis. Assessment & Plan Assessment and Plan Postop day #3 status post right foot/ankle arthrotomy with open reduction of irreducible subtalar and talonavicular dislocation with application of external fixator. ABX finish today Continue with external fixator for right lower extremity. Continue with daily dressing changes to the right lower extremity, discussed with nursing today Pin Care Lovenox (ordered on chart) Nonweightbearing to right lower extremity. Continue ice and elevation of right lower extremity. Plan is for return to surgery in 4-6 weeks for removal of ex-fix. We will sign off for now. re-consult as necessary. George Pastor MD Oct 04, 2017 18:20
[2017-10-04] MEDS ORDERED: NORC5TAB PO (18:21)
[2017-10-04] MEDS ORDERED: ASPI-183 PO (18:21)
[2017-10-04] MEDS ORDERED: ENOX40IN SQ (18:21)
[2017-10-04] MEDS: REMOVE OLD PATCH-LIDOCAINE T-DERMAL SCH (21:00)
[2017-10-04] MEDS: CHLORHEXIDINE GLUCONATE 2 % 1 PACK (2 CLOTHS) TOP SCH (22:10)
[2017-10-05] VITALS (8 sets, daily range): BP systolic 112–137; BP diastolic 56–76; PULSE 87–110; RESP 15–20; TEMP 97.6–99; O2SAT 96–100
[2017-10-05] MEDS: METHOCARBAMOL 500 MG TAB PO SCH ×3 (06:00→22:03)
--- NOTE | 2017-10-05 07:06 | RADRPT ---
EXAM DATE/TIME: 10/05/2017 06:29 [facility] COMPARISON: CHEST SINGLE AP, October 03, 2017, 4:51. INDICATIONS : Pneumothorax. MEDICAL HISTORY : None. SURGICAL HISTORY : None. ENCOUNTER: Subsequent ACUITY: 4 - 6 days PAIN SCORE: 5/10 LOCATION: Bilateral chest FINDINGS: Cardiomegaly, endovascular stent graft descending aorta. Left-sided chest tube is noted. A small left apical pneumothorax is present. There is patchy airspace disease at the bases and a small right-side d pleural effusion is again noted. CONCLUSION: No significant change has occurred. Subhash Espinosa MD on October 05, 2017 at 7:04 Board Certified Radiologist. This report was verified electronically.
[2017-10-05] MEDS: RESP: ALBUTEROL 2.5 MG/IPRATROPIUM 0.5 MG NEB (SCH) NEB ×4 (08:00→20:01)
[2017-10-05] MEDS: MAGNESIUM HYDROXIDE SUSP 30 ML CUP PO SCH ×2 (08:44→22:03)
[2017-10-05] MEDS: LACTULOSE SYRUP 20 GM/30 ML CUP PO SCH (08:45)
[2017-10-05] MEDS: LIDOCAINE HCL 5% PATCH T-DERMAL SCH (08:46)
[2017-10-05] MEDS: FAMOTIDINE 20 MG TAB PO SCH ×2 (08:46→22:02)
[2017-10-05] MEDS: levETIRAcetam 500 MG TAB PO SCH ×2 (08:46→22:02)
[2017-10-05] MEDS: MULTIVITAMINS/MINERALS THERAPEUTIC TAB PO SCH (08:46)
[2017-10-05] MEDS: GABAPENTIN 300 MG CAP PO SCH ×3 (08:46→17:24)
[2017-10-05] MEDS: DOCUSATE SODIUM 50 MG/SENNA 8.6 MG TAB PO SCH ×2 (08:46→22:02)
[2017-10-05] MEDS: SODIUM CHLORIDE 0.9% FLUSH 10 ML FLUSH IV FLUSH SCH ×2 (08:53→22:02)
[2017-10-05] MEDS: BACITRACIN TOP OINT 15 GM TUBE TOP SCH ×2 (09:34→22:02)
--- NOTE | 2017-10-05 10:11 | HHI.PR ---
Subjective Remarks pod 3 s/p closure of scalp and forehead avulsion flap/laceration -->12 cm from the hairline down to the top of the brow pt seen and examined, nurse at bedside no complaints Objective Vital Signs Date Time Temp Pulse Resp B/P (MAP) Pulse Ox O2 Delivery O2 Flow Rate FiO2 10/05/17 08:00 98.5 87 15 117/63 (81) 100 10/05/17 04:00 98.4 100 20 133/65 (87) 96 10/05/17 00:00 99.0 100 18 112/59 (76) 97 10/04/17 23:47 Nasal Cannula 2.00 10/04/17 21:14 94 Nasal Cannula 2.00 10/04/17 20:00 97.6 110 20 130/74 (92) 95 10/04/17 16:00 97.4 107 16 126/63 (84) 99 10/04/17 12:00 97.9 81 16 116/59 (78) 100 I/O 10/04/17 10/04/17 10/04/17 10/05/17 10/05/17 10/05/17 07:00 15:00 23:00 07:00 15:00 23:00 Intake Total 340 ml 100 ml 720 ml 240 ml Output Total 0 ml 200 ml 440 ml Balance 340 ml 100 ml 520 ml -200 ml Intake Oral 240 ml 720 ml 240 ml IV Total 100 ml 100 ml Output Urine Total 400 ml Chest Tube Drainage Total 0 ml 200 ml 40 ml # Voids 1 2 # Bowel Movements 0 0 0 Result Diagram: 10/04/173 10/04/17 0313 Objective Remarks scalp/ forehead wound well approximated, sutures and cici intact steri strips in place no signs of infection bleeding pus edema tissues pink/well perfused Assessment and Plan Assessment and Plan pod 3 s/p closure of scalp and forehead avulsion flap/laceration -->12 cm from the hairline down to the top of the brow healing well/as expected plan for suture/staple removal next week. Logan Clayton DMD Oct 05, 2017 10:11
[2017-10-05 10:46] LABS: AUTOMATED NEUTROPHIL # 6.1 TH/MM3 (1.8-7.7); BASOPHIL % 0.3 % (0.0-2.0); EOSINOPHIL # 0.1 TH/MM3 (0-0.4); EOSINOPHIL % 0.6 % (0.0-4.0); HEMATOCRIT 25.7 % (35.0-46.0); HEMOGLOBIN 8.9 GM/DL (11.6-15.3); LYMPH % 12.7 % (9.0-44.0); MEAN CELL VOLUME 90.4 FL (80.0-100.0); MEAN CORPUSCULAR HEMOGLOBIN 31.5 PG (27.0-34.0); MEAN CORPUSCULAR HGB CONC 34.8 % (32.0-36.0); MEAN PLATELET VOLUME 7.2 FL (7.0-11.0); MONO % 9.1 % (0.0-8.0); MONOCYTE # 0.7 TH/MM3 (0-0.9); NEUT % 77.3 % (16.0-70.0); PLATELET COUNT 149 TH/MM3 (150-450); RED BLOOD COUNT 2.84 MIL/MM3 (4.00-5.30); RED CELL DISTRIBUTION WIDTH 14.2 % (11.6-17.2); WHITE BLOOD COUNT 7.9 TH/MM3 (4.0-11.0)
[2017-10-05] MEDS: ENOXAPARIN SODIUM 40 MG/0.4 ML SYRINGE SQ SCH (11:05)
[2017-10-05 11:08] LABS: CALCIUM 8.3 MG/DL (8.5-10.1); CREATININE 0.61 MG/DL (0.50-1.00)
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
[2017-10-05] MEDS: REMOVE OLD PATCH-LIDOCAINE T-DERMAL SCH (22:04)
[2017-10-06] VITALS: BP 136/73; PULSE 104; RESP 17; TEMP 99.1; O2SAT 100
[2017-10-06 04:09] LABS: AUTOMATED NEUTROPHIL # 4.3 TH/MM3 (1.8-7.7); BASOPHIL % 0.4 % (0.0-2.0); EOSINOPHIL # 0.1 TH/MM3 (0-0.4); EOSINOPHIL % 0.9 % (0.0-4.0); HEMATOCRIT 25.5 % (35.0-46.0); LYMPH % 21.3 % (9.0-44.0); LYMPHOCYTE # 1.4 TH/MM3 (1.0-4.8); MEAN CELL VOLUME 89.6 FL (80.0-100.0); MEAN CORPUSCULAR HEMOGLOBIN 31.7 PG (27.0-34.0); MEAN CORPUSCULAR HGB CONC 35.4 % (32.0-36.0); MEAN PLATELET VOLUME 6.9 FL (7.0-11.0); MONO % 12.9 % (0.0-8.0); MONOCYTE # 0.9 TH/MM3 (0-0.9); NEUT % 64.5 % (16.0-70.0); PLATELET COUNT 176 TH/MM3 (150-450); RED BLOOD COUNT 2.84 MIL/MM3 (4.00-5.30); RED CELL DISTRIBUTION WIDTH 14.1 % (11.6-17.2); WHITE BLOOD COUNT 6.6 TH/MM3 (4.0-11.0)
[2017-10-06 04:36] LABS: ALBUMIN 2.2 GM/DL (3.4-5.0); ALT (GPT) 44 U/L (10-53); AST (GOT) 39 U/L (15-37); BICARBONATE 31.9 MEQ/L (21.0-32.0); BLOOD UREA NITROGEN 7 MG/DL (7-18); CALCIUM 8.2 MG/DL (8.5-10.1); CHLORIDE 104 MEQ/L (98-107); CREATININE 0.51 MG/DL (0.50-1.00); GLOMERULAR FILTRATION RATE 129 ML/MIN (>89); GLUCOSE,RANDOM 106 MG/DL (74-106); SODIUM (NA) 142 MEQ/L (136-145)
[2017-10-06 04:38] LABS: ALKALINE PHOSPHATASE 129 U/L (45-117); TOTAL BILIRUBIN ADULT 0.6 MG/DL (0.2-1.0)
[2017-10-06] MEDS: METHOCARBAMOL 500 MG TAB PO SCH ×3 (05:38→21:28)
--- NOTE | 2017-10-06 06:14 | RADRPT ---
EXAM DATE/TIME: 10/06/2017 05:09 [facility] COMPARISON: CHEST SINGLE AP, October 05, 2017, 6:29. INDICATIONS : Shortness of breath MEDICAL HISTORY : None. SURGICAL HISTORY : Endovascular stent ENCOUNTER: Initial ACUITY: 1 week PAIN SCORE: Non-responsive. LOCATION: Bilateral chest FINDINGS: A single view of the chest demonstrates bibasilar densities and small right pleural effusion. Left-si ded chest tube and small left apical pneumothorax. Stent graft in the thoracic aorta again seen. Oss eous structures are intact. CONCLUSION: Small left apical pneumothorax. Eulalio Abbott MD on October 06, 2017 at 6:12 Board Certified Radiologist. This report was verified electronically.
[2017-10-06] MEDS ORDERED: BISACODYL 10 MG SUPP RECTAL ONE (07:45)
[2017-10-06] MEDS ORDERED: BISACODYL EC 5 MG TABEC PO ONE (07:45)
[2017-10-06] MEDS ORDERED: PERI PO (07:47)
[2017-10-06] MEDS ORDERED: MAGN30S PO (07:47)
[2017-10-06 07:48] VITALS: BP 112/62; PULSE 87; RESP 16; TEMP 98; O2SAT 100
[2017-10-06] MEDS ORDERED: POTASSIUM CHLORIDE 20 MEQ CONTROLLED RELEASE TAB PO ONE (08:00)
[2017-10-06] MEDS: RESP: ALBUTEROL 2.5 MG/IPRATROPIUM 0.5 MG NEB (SCH) NEB ×4 (08:27→20:00)
[2017-10-06 08:29] VITALS: O2SAT 98
[2017-10-06] MEDS: BACITRACIN TOP OINT 15 GM TUBE TOP SCH ×2 (09:00→21:29)
[2017-10-06] MEDS: GABAPENTIN 300 MG CAP PO SCH ×3 (09:31→18:06)
[2017-10-06] MEDS: DOCUSATE SODIUM 50 MG/SENNA 8.6 MG TAB PO SCH ×2 (09:31→21:28)
[2017-10-06] MEDS: SODIUM CHLORIDE 0.9% FLUSH 10 ML FLUSH IV FLUSH SCH ×2 (09:31→21:28)
[2017-10-06] MEDS: levETIRAcetam 500 MG TAB PO SCH ×2 (09:31→21:28)
[2017-10-06] MEDS: MULTIVITAMINS/MINERALS THERAPEUTIC TAB PO SCH (09:31)
[2017-10-06] MEDS: MAGNESIUM HYDROXIDE SUSP 30 ML CUP PO SCH ×2 (09:32→21:28)
[2017-10-06] MEDS: FAMOTIDINE 20 MG TAB PO SCH ×2 (09:32→21:28)
[2017-10-06] MEDS: LACTULOSE SYRUP 20 GM/30 ML CUP PO SCH (09:32)
[2017-10-06] MEDS: LIDOCAINE HCL 5% PATCH T-DERMAL SCH (09:33)
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
[2017-10-06 12:00] VITALS: BP 110/67; PULSE 89; RESP 16; TEMP 98.1; O2SAT 96
[2017-10-06] MEDS: ENOXAPARIN SODIUM 40 MG/0.4 ML SYRINGE SQ SCH (13:29)
[2017-10-06 15:51] VITALS: BP 133/61; PULSE 104; RESP 16; TEMP 97.8; O2SAT 95
[2017-10-06] MEDS ORDERED: POTASSIUM CHLORIDE 10 MEQ CONTROLLED RELEASE TAB PO ONE (18:00)
[2017-10-06 20:07] VITALS: BP 98/57; PULSE 110; RESP 16; TEMP 97.8; O2SAT 94
[2017-10-06] MEDS: REMOVE OLD PATCH-LIDOCAINE T-DERMAL SCH (21:29)
[2017-10-07 00:56] VITALS: BP 125/63; PULSE 101; RESP 16; TEMP 99.3; O2SAT 92
[2017-10-07] MEDS: METHOCARBAMOL 500 MG TAB PO SCH ×3 (04:45→22:11)
[2017-10-07 05:46] LABS: AUTOMATED NEUTROPHIL # 4.7 TH/MM3 (1.8-7.7); BASOPHIL % 0.4 % (0.0-2.0); EOSINOPHIL # 0.1 TH/MM3 (0-0.4); HEMATOCRIT 27.6 % (35.0-46.0); HEMOGLOBIN 9.6 GM/DL (11.6-15.3); LYMPHOCYTE # 1.1 TH/MM3 (1.0-4.8); MEAN CELL VOLUME 89.5 FL (80.0-100.0); MEAN CORPUSCULAR HEMOGLOBIN 31.3 PG (27.0-34.0); MEAN PLATELET VOLUME 6.8 FL (7.0-11.0); MONO % 13.3 % (0.0-8.0); MONOCYTE # 0.9 TH/MM3 (0-0.9); NEUT % 69.3 % (16.0-70.0); PLATELET COUNT 236 TH/MM3 (150-450); RED BLOOD COUNT 3.08 MIL/MM3 (4.00-5.30); RED CELL DISTRIBUTION WIDTH 14.1 % (11.6-17.2); WHITE BLOOD COUNT 6.8 TH/MM3 (4.0-11.0)
[2017-10-07 06:13] LABS: BICARBONATE 28.7 MEQ/L (21.0-32.0); CALCIUM 8.3 MG/DL (8.5-10.1); CREATININE 0.55 MG/DL (0.50-1.00)
[2017-10-07] MEDS: RESP: ALBUTEROL 2.5 MG/IPRATROPIUM 0.5 MG NEB (SCH) NEB ×4 (07:55→19:44)
[2017-10-07 08:00] VITALS: BP 102/55; PULSE 98; RESP 17; TEMP 98.3; O2SAT 98
[2017-10-07 08:07] VITALS: O2SAT 98
[2017-10-07] MEDS: MAGNESIUM HYDROXIDE SUSP 30 ML CUP PO SCH ×2 (09:58→22:11)
[2017-10-07] MEDS: LACTULOSE SYRUP 20 GM/30 ML CUP PO SCH (09:58)
[2017-10-07] MEDS: DOCUSATE SODIUM 50 MG/SENNA 8.6 MG TAB PO SCH ×2 (09:58→22:11)
[2017-10-07] MEDS: GABAPENTIN 300 MG CAP PO SCH ×3 (09:58→17:56)
[2017-10-07] MEDS: levETIRAcetam 500 MG TAB PO SCH ×2 (09:59→22:11)
[2017-10-07] MEDS: FAMOTIDINE 20 MG TAB PO SCH ×2 (09:59→22:11)
[2017-10-07] MEDS: ENOXAPARIN SODIUM 40 MG/0.4 ML SYRINGE SQ SCH (09:59)
[2017-10-07] MEDS: MULTIVITAMINS/MINERALS THERAPEUTIC TAB PO SCH (09:59)
[2017-10-07] MEDS: LIDOCAINE HCL 5% PATCH T-DERMAL SCH (10:00)
[2017-10-07] MEDS: SODIUM CHLORIDE 0.9% FLUSH 10 ML FLUSH IV FLUSH SCH ×2 (10:01→22:21)
[2017-10-07] MEDS: BACITRACIN TOP OINT 15 GM TUBE TOP SCH ×2 (10:02→22:15)
[2017-10-07 12:00] VITALS: BP 116/64; PULSE 92; RESP 17; TEMP 98; O2SAT 97
--- NOTE | 2017-10-07 12:44 | RADRPT ---
EXAM DATE/TIME: 10/07/2017 11:45 [facility] COMPARISON: CHEST SINGLE AP, October 01, 2017, 15:51. AORTAGRAM, ARCH, October 01, 2017, 0:00. CHEST SINGLE AP, Sep, 5:09. INDICATIONS : Evaluate for pneumothorax due to trauma. MEDICAL HISTORY : Trauma. SURGICAL HISTORY : Chest tube. ENCOUNTER: Subsequent ACUITY: 3 days PAIN SCORE: 8/10 LOCATION: Bilateral chest FINDINGS: There is aortic stent graft seen. There is a left chest tube present. There is a mild pneumothorax se en on the left side over the apex measuring 1.4 cm in thickness. Significant medial soft tissue of di stal not seen. As bibasilar areas of increased parenchymal density. There is silhouetted the right he midiaphragm. Some degree of right effusion is present. CONCLUSION: 1. Left chest tube with a mild left pneumothorax noted the apex measuring 1.4 cm in a thickness. 2. Aortic stent graft in place over the superior descending thoracic aorta. There is some increased s oft tissue density seen lateral to the stent. The previous seen very prominent mediastinal widening i s clearly improving. 3. Bibasilar is of consolidation or atelectasis. There is at least a mild right pleural effusion pres ent. Olman Guaman MD on October 07, 2017 at 12:37 Board Certified Radiologist. This report was verified electronically.
[2017-10-07] MEDS ORDERED: MAGNESIUM CITRATE SOLN 300 ML BTL PO ONE (13:00)
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
[2017-10-07 16:00] VITALS: BP 111/62; PULSE 97; RESP 18; TEMP 98; O2SAT 99
[2017-10-07 20:00] VITALS: BP 117/61; PULSE 102; RESP 18; TEMP 98.3; O2SAT 96
[2017-10-07] MEDS: REMOVE OLD PATCH-LIDOCAINE T-DERMAL SCH (22:21)
[2017-10-08] VITALS: BP 112/59; PULSE 101; RESP 18; TEMP 99.1; O2SAT 94
[2017-10-08] MEDS: METHOCARBAMOL 500 MG TAB PO SCH ×3 (05:37→21:38)
--- NOTE | 2017-10-08 05:45 | RADRPT ---
EXAM DATE/TIME: 10/08/2017 04:44 [facility] COMPARISON: CHEST SINGLE AP, October 02, 2017, 4:19. ENDOVAS REPAIR THOR AORTA W/O LT SUBCLAVIAN, October 01, 2017, 18:06. AORTAGRAM, ARCH, October 01, 2017, 0:00. CT THORAX W CONTRAST, October 01, 2017, 16:52. CHEST S CARMINE AP, October 01, 2017, 15:51. CHEST SINGLE AP, October 07, 2017, 11:45. INDICATIONS : Left pneumothorax. MEDICAL HISTORY : None. SURGICAL HISTORY : Chest tube. Stent. ENCOUNTER: Subsequent ACUITY: 4 - 6 days PAIN SCORE: 8/10 LOCATION: Left chest FINDINGS: Left chest tube is in place with small left apical pneumothorax without tension. Thoracic stent graft is present. There is subsegmental atelectasis in the both bases. Moderate size bilateral pleural ef fusions are identified. CONCLUSION: 1. Small left apical pneumothorax. There are no signs of tension. Jayme Sauceda MD on October 08, 2017 at 5:37 Board Certified Radiologist. This report was verified electronically.
[2017-10-08 08:00] VITALS: BP 106/56; PULSE 91; RESP 18; TEMP 97.9; O2SAT 97
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
[2017-10-08] MEDS: SODIUM CHLORIDE 0.9% FLUSH 10 ML FLUSH IV FLUSH SCH ×2 (09:00→21:33)
[2017-10-08] MEDS: BACITRACIN TOP OINT 15 GM TUBE TOP SCH ×2 (09:00→21:37)
[2017-10-08] MEDS: GABAPENTIN 300 MG CAP PO SCH ×3 (09:59→16:55)
[2017-10-08] MEDS: MAGNESIUM HYDROXIDE SUSP 30 ML CUP PO SCH ×2 (09:59→21:34)
[2017-10-08] MEDS: MULTIVITAMINS/MINERALS THERAPEUTIC TAB PO SCH (09:59)
[2017-10-08] MEDS: LACTULOSE SYRUP 20 GM/30 ML CUP PO SCH (09:59)
[2017-10-08] MEDS: DOCUSATE SODIUM 50 MG/SENNA 8.6 MG TAB PO SCH ×2 (09:59→21:34)
[2017-10-08] MEDS: levETIRAcetam 500 MG TAB PO SCH ×3 (09:59→21:33)
[2017-10-08] MEDS: FAMOTIDINE 20 MG TAB PO SCH ×2 (09:59→21:00)
[2017-10-08] MEDS: LIDOCAINE HCL 5% PATCH T-DERMAL SCH (10:00)
[2017-10-08] MEDS: ENOXAPARIN SODIUM 40 MG/0.4 ML SYRINGE SQ SCH (10:00)
[2017-10-08] MEDS: ACETAMINOPHEN 1000 MG/100 ML 100 ML IV SCH ×3 (11:30→22:59)
[2017-10-08 12:00] VITALS: BP 113/56; PULSE 101; RESP 16; TEMP 97.2; O2SAT 97
[2017-10-08 16:00] VITALS: BP 145/69; PULSE 98; RESP 17; TEMP 97.8; O2SAT 99
[2017-10-08] MEDS: RESP: ALBUTEROL 2.5 MG/IPRATROPIUM 0.5 MG NEB (PRN) NEB (18:12)
[2017-10-08 20:00] VITALS: BP 104/51; PULSE 98; RESP 16; TEMP 98.1; O2SAT 97
[2017-10-08 21:09] VITALS: O2SAT 97
[2017-10-08] MEDS: REMOVE OLD PATCH-LIDOCAINE T-DERMAL SCH (21:37)
--- NOTE | 2017-10-09 05:40 | RADRPT ---
EXAM DATE/TIME: 10/09/2017 05:18 [facility] COMPARISON: CHEST SINGLE AP, October 08, 2017, 4:44. INDICATIONS : Left pneumothorax MEDICAL HISTORY : None. SURGICAL HISTORY : Chest tube. Stent ENCOUNTER: Subsequent ACUITY: 1 day PAIN SCORE: Non-responsive. LOCATION: Bilateral chest FINDINGS: The cardiac silhouette is normal in transverse diameter. Left chest tube is in place with small left apical pneumothorax. There is bilateral lower lobe atelectasis versus pneumonia. Small bilateral pleu ral effusions are identified. CONCLUSION: 1. Small left apical pneumothorax. There has been no significant change when compared to the prior ex am. Jayme Sauceda MD on October 09, 2017 at 5:38 Board Certified Radiologist. This report was verified electronically.
[2017-10-09] MEDS: METHOCARBAMOL 500 MG TAB PO SCH ×4 (05:54→20:48)
[2017-10-09] MEDS: ACETAMINOPHEN 1000 MG/100 ML 100 ML IV SCH ×3 (05:54→16:24)
[2017-10-09 08:00] VITALS: BP 107/55; PULSE 77; RESP 18; TEMP 97.7; O2SAT 97
[2017-10-09] MEDS: GABAPENTIN 300 MG CAP PO SCH ×3 (09:00→17:36)
[2017-10-09] MEDS: FAMOTIDINE 20 MG TAB PO SCH ×2 (09:00→20:46)
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
[2017-10-09] MEDS: LIDOCAINE HCL 5% PATCH T-DERMAL SCH (10:39)
[2017-10-09] MEDS: LACTULOSE SYRUP 20 GM/30 ML CUP PO SCH (10:40)
[2017-10-09] MEDS: DOCUSATE SODIUM 50 MG/SENNA 8.6 MG TAB PO SCH ×2 (10:41→20:46)
[2017-10-09] MEDS: MAGNESIUM HYDROXIDE SUSP 30 ML CUP PO SCH ×2 (10:41→20:45)
[2017-10-09] MEDS: MULTIVITAMINS/MINERALS THERAPEUTIC TAB PO SCH (10:41)
[2017-10-09] MEDS: SODIUM CHLORIDE 0.9% FLUSH 10 ML FLUSH IV FLUSH SCH ×2 (10:44→20:45)
[2017-10-09] MEDS: BACITRACIN TOP OINT 15 GM TUBE TOP SCH ×2 (10:44→20:46)
[2017-10-09] MEDS: ENOXAPARIN SODIUM 40 MG/0.4 ML SYRINGE SQ SCH (10:48)
[2017-10-09] MEDS ORDERED: LACTULOSE SYRUP 20 GM/30 ML CUP PO PRN (11:45)
[2017-10-09 12:00] VITALS: BP 117/58; PULSE 84; RESP 17; TEMP 97.4; O2SAT 97
[2017-10-09 16:00] VITALS: BP 125/66; PULSE 104; RESP 19; TEMP 97.5; O2SAT 96
[2017-10-09 20:00] VITALS: BP 128/63; PULSE 100; RESP 16; TEMP 98.4; O2SAT 97
[2017-10-09] MEDS: REMOVE OLD PATCH-LIDOCAINE T-DERMAL SCH (20:46)
[2017-10-10] VITALS (7 sets, daily range): BP systolic 105–135; BP diastolic 57–65; PULSE 81–112; RESP 16–22; TEMP 97.6–98.4; O2SAT 92–100
--- NOTE | 2017-10-10 06:39 | RADRPT ---
EXAM DATE/TIME: 10/10/2017 05:30 [facility] COMPARISON: CHEST SINGLE AP, October 09, 2017, 5:18. INDICATIONS : Follow up post trauma, short of breath, cough, evalute left pneumothorax and chest tube MEDICAL HISTORY : left pneumothorax SURGICAL HISTORY : left chest tube, aortic graft ENCOUNTER: Subsequent ACUITY: 1 week PAIN SCORE: 8/10 LOCATION: Left chest FINDINGS: There is right greater than left basilar atelectasis, unchanged. Left chest tube remains in place. Th ere is a small apical pneumothorax that measures approximately 14 mm in maximal thickness. No tension . No pneumothorax on the right. Stable, normal heart size. The thoracic aorta stent graft again noted. CONCLUSION: Small left pneumothorax. Left chest tube remains in place. Olman Lopez MD on October 10, 2017 at 6:36 Board Certified Radiologist. This report was verified electronically.
[2017-10-10] MEDS: FAMOTIDINE 20 MG TAB PO SCH ×2 (11:37→20:18)
[2017-10-10] MEDS: LIDOCAINE HCL 5% PATCH T-DERMAL SCH (11:37)
[2017-10-10] MEDS: DOCUSATE SODIUM 50 MG/SENNA 8.6 MG TAB PO SCH ×2 (11:38→20:18)
[2017-10-10] MEDS: MAGNESIUM HYDROXIDE SUSP 30 ML CUP PO SCH ×2 (11:38→20:18)
[2017-10-10] MEDS: METHOCARBAMOL 500 MG TAB PO SCH ×2 (11:38→20:19)
[2017-10-10] MEDS: GABAPENTIN 300 MG CAP PO SCH ×3 (11:38→16:58)
[2017-10-10] MEDS: MULTIVITAMINS/MINERALS THERAPEUTIC TAB PO SCH (11:38)
[2017-10-10] MEDS: ENOXAPARIN SODIUM 40 MG/0.4 ML SYRINGE SQ SCH (11:38)
[2017-10-10] MEDS: SODIUM CHLORIDE 0.9% FLUSH 10 ML FLUSH IV FLUSH SCH ×2 (11:39→20:20)
[2017-10-10] MEDS: BACITRACIN TOP OINT 15 GM TUBE TOP SCH ×2 (11:40→20:20)
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
[2017-10-10] MEDS: REMOVE OLD PATCH-LIDOCAINE T-DERMAL SCH (20:21)
--- NOTE | 2017-10-10 21:30 | RADRPT ---
EXAM DATE/TIME: 10/10/2017 20:48 [facility] COMPARISON: CHEST SINGLE AP, October 10, 2017, 5:30. INDICATIONS : Chest pain. MEDICAL HISTORY : Left pneumothorax. SURGICAL HISTORY : Left chest tube, aortic graft. ENCOUNTER: Subsequent ACUITY: 1 week PAIN SCORE: 10/10 LOCATION: Bilateral chest FINDINGS: There is a large left pneumothorax. There is a Left-sided chest tube in place. The pneumothorax measu res up to 3.5 cm in thickness. Significant shift of the mediastinal structures is not seen. There is increased density the bases bilaterally. There is an aortic stent graft seen in the descending thorac ic aorta. CONCLUSION: Worsening left pneumothorax now appearing more as measured to 3.5 cm in thickness. There is a left-si ded chest tube in place. Attempts are being made to contact the floor with this reading. Olman Guaman MD on October 10, 2017 at 21:25 Board Certified Radiologist. This report was verified electronically.
--- NOTE | 2017-10-10 22:38 | RADRPT ---
EXAM DATE/TIME: 10/10/2017 22:23 [facility] COMPARISON: CHEST SINGLE AP, October 10, 2017, 20:48. INDICATIONS : Post chest tube replacement. MEDICAL HISTORY : Left pneumothorax. SURGICAL HISTORY : Left chest tube, aortic graft. ENCOUNTER: Subsequent ACUITY: 1 week PAIN SCORE: 4/10 LOCATION: Bilateral chest FINDINGS: There continues to be a large left pneumothorax measuring up to 3.3 cm. Left-sided chest tube is agai n seen. There is suspected atelectasis or consolidation at the lung bases. There is an aortic stent g raft in place. CONCLUSION: Persistent large left pneumothorax. Olman Guaman MD on October 10, 2017 at 22:34 Board Certified Radiologist. This report was verified electronically.
[2017-10-10] MEDS ORDERED: MIDAZOLAM HCL 5 MG/ML VIAL (1 ML) ONE (22:49)
--- NOTE | 2017-10-10 23:59 | PD.OP ---
Operative Report Pneumothorax left chest Postoperative Diagnosis: Pneumothorax left chest Procedure: Left chest tube thoracostomy Anesthesia: 4mg Versed,100 mcg Fentanyl,10 cc Lidocaine Surgeon: Shannan Greenwood Processing Assistant(s): none Operation and Findings: Noticed large pneumothorax on the evening Xray obtained after patient complained of "chest tightness"-Patient spo2 95 % on 2l O2,no SOB.Transferred to the [facility] for moderate sedation.This was performed with monitoring and with patient 100 % FIO2, Technique: 4 ICR level transverse incision performed-dissection tho the level of the rib.Pleural space penetrated-and a [address] inserted after lung palpated.CT sutured to skin with 0 silk.LA with 1% Lidocaine.Tolerated procedure well.CXR shows resolution of PTX and CT in good position. Shannan Greenwood MD Oct 10, 2017 23:59
[2017-10-11] VITALS (10 sets, daily range): BP systolic 111–139; BP diastolic 55–65; PULSE 74–94; RESP 16–22; TEMP 97.8–100.3; O2SAT 96–100
--- NOTE | 2017-10-11 00:16 | RADRPT ---
EXAM DATE/TIME: 10/10/2017 23:53 [facility] COMPARISON: CHEST SINGLE AP, October 10, 2017, 22:23. INDICATIONS : Left chest tube placement, evaluate pneumothorax. MEDICAL HISTORY : Left pneumothorax. SURGICAL HISTORY : Left chest tube, aortic graft. ENCOUNTER: Subsequent ACUITY: 1 week PAIN SCORE: 0/10 LOCATION: Bilateral chest FINDINGS: An additional left chest tube has been placed, and L2 are present. Pneumothorax has resolved. There i s mild atelectasis at the left base. Mild left chest wall emphysema. Mild right base atelectasis. No right effusion. Heart size stable, within normal limits. Aortic stent graft is again seen CONCLUSION: 1. 2 left chest tubes are now present. The pneumothorax seen earlier tonight has resolved. 2. Mild bibasilar atelectasis. Olman Lopez MD on October 11, 2017 at 0:14 Board Certified Radiologist. This report was verified electronically.
[2017-10-11] MEDS: MORPHINE SULFATE 4 MG/ML INJ IV PUSH PRN ×2 (00:34→03:30)
--- NOTE | 2017-10-11 05:26 | RADRPT ---
EXAM DATE/TIME: 10/11/2017 03:20 [facility] COMPARISON: CHEST EXPIRATION ONLY, October 10, 2017, 23:53. INDICATIONS : Short of breath. MEDICAL HISTORY : Left pneumothorax. SURGICAL HISTORY : Left chest tube, aortic graft. ENCOUNTER: Subsequent ACUITY: 1 week PAIN SCORE: Non-responsive. LOCATION: Bilateral chest FINDINGS: 2 left chest is again noted. No pneumothorax. Mild bibasilar consolidation unchanged. Heart size within normal limits. Aortic stent graft again seen. CONCLUSION: No significant change mild bibasilar consolidation. 2 left chest tubes. No pneumothorax. Olman Lopez MD on October 11, 2017 at 5:24 Board Certified Radiologist. This report was verified electronically.
[2017-10-11] MEDS: METHOCARBAMOL 500 MG TAB PO SCH ×3 (06:07→22:00)
[2017-10-11] MEDS: SODIUM CHLORIDE 0.9% FLUSH 10 ML FLUSH IV FLUSH SCH ×2 (08:33→21:00)
[2017-10-11] MEDS: MAGNESIUM HYDROXIDE SUSP 30 ML CUP PO SCH ×2 (08:35→21:00)
[2017-10-11] MEDS: DOCUSATE SODIUM 50 MG/SENNA 8.6 MG TAB PO SCH ×2 (08:35→21:00)
[2017-10-11] MEDS: LIDOCAINE HCL 5% PATCH T-DERMAL SCH (08:36)
[2017-10-11] MEDS: MULTIVITAMINS/MINERALS THERAPEUTIC TAB PO SCH (08:36)
[2017-10-11] MEDS: GABAPENTIN 300 MG CAP PO SCH ×3 (08:36→18:09)
[2017-10-11] MEDS: FAMOTIDINE 20 MG TAB PO SCH ×2 (08:41→21:00)
[2017-10-11] MEDS ORDERED: BENZOCAINE 6 MG/MENTHOL 10 MG LOZENGE BUCCAL PRN (10:00)
[2017-10-11] MEDS: ENOXAPARIN SODIUM 40 MG/0.4 ML SYRINGE SQ SCH (11:57)
[2017-10-11] MEDS: BACITRACIN TOP OINT 15 GM TUBE TOP SCH (12:00)
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
[2017-10-11] MEDS: RESP: ALBUTEROL 2.5 MG/IPRATROPIUM 0.5 MG NEB (PRN) NEB (20:02)
[2017-10-11] MEDS: REMOVE OLD PATCH-LIDOCAINE T-DERMAL SCH (21:00)
[2017-10-12] VITALS (7 sets, daily range): BP systolic 104–137; BP diastolic 56–63; PULSE 83–105; RESP 17–25; TEMP 97.4–98.6; O2SAT 94–97
--- NOTE | 2017-10-12 05:31 | RADRPT ---
EXAM DATE/TIME: 10/12/2017 04:34 [facility] COMPARISON: CHEST SINGLE AP, October 11, 2017, 3:20. INDICATIONS : Shortness of breath. MEDICAL HISTORY : Left pneumothorax SURGICAL HISTORY : Left chest tube, aortic graft ENCOUNTER: Subsequent ACUITY: 1 week PAIN SCORE: 7/10 LOCATION: Bilateral chest FINDINGS: Mild bibasilar consolidation and small effusions again noted and not significantly changed. There are 2 left chest tubes again seen. No pneumothorax. Heart size stable, within normal limits. Aortic stent graft again seen. CONCLUSION: No significant change mild consolidation and small effusions at each base. Left chest tubes remain in place. No pneumothorax. Olman Lopez MD on October 12, 2017 at 5:29 Board Certified Radiologist. This report was verified electronically.
[2017-10-12] MEDS: METHOCARBAMOL 500 MG TAB PO SCH ×3 (05:38→23:05)
[2017-10-12 06:48] LABS: AUTOMATED NEUTROPHIL # 7.9 TH/MM3 (1.8-7.7); BASOPHIL % 0.5 % (0.0-2.0); EOSINOPHIL # 0.1 TH/MM3 (0-0.4); EOSINOPHIL % 0.7 % (0.0-4.0); HEMOGLOBIN 10.4 GM/DL (11.6-15.3); LYMPH % 10.3 % (9.0-44.0); MEAN CELL VOLUME 90.6 FL (80.0-100.0); MEAN CORPUSCULAR HEMOGLOBIN 31.3 PG (27.0-34.0); MEAN CORPUSCULAR HGB CONC 34.6 % (32.0-36.0); MEAN PLATELET VOLUME 6.7 FL (7.0-11.0); MONO % 9.7 % (0.0-8.0); NEUT % 78.8 % (16.0-70.0); PLATELET COUNT 479 TH/MM3 (150-450); RED BLOOD COUNT 3.31 MIL/MM3 (4.00-5.30)
[2017-10-12 07:22] LABS: ALBUMIN 2.4 GM/DL (3.4-5.0); AST (GOT) 72 U/L (15-37); BICARBONATE 28.5 MEQ/L (21.0-32.0); BLOOD UREA NITROGEN 11 MG/DL (7-18); CHLORIDE 98 MEQ/L (98-107); CREATININE 0.63 MG/DL (0.50-1.00); GLOMERULAR FILTRATION RATE 101 ML/MIN (>89); GLUCOSE,RANDOM 106 MG/DL (74-106); SODIUM (NA) 134 MEQ/L (136-145)
[2017-10-12 07:26] LABS: ALKALINE PHOSPHATASE 136 U/L (45-117); ALT (GPT) 71 U/L (10-53); TOTAL BILIRUBIN ADULT 0.4 MG/DL (0.2-1.0)
[2017-10-12] MEDS: BACITRACIN TOP OINT 15 GM TUBE TOP SCH ×2 (09:00→21:00)
[2017-10-12] MEDS: FAMOTIDINE 20 MG TAB PO SCH ×2 (09:00→23:08)
[2017-10-12] MEDS: SODIUM CHLORIDE 0.9% FLUSH 10 ML FLUSH IV FLUSH SCH ×2 (10:32→21:00)
[2017-10-12] MEDS: MULTIVITAMINS/MINERALS THERAPEUTIC TAB PO SCH (10:32)
[2017-10-12] MEDS: MAGNESIUM HYDROXIDE SUSP 30 ML CUP PO SCH ×2 (10:32→23:09)
[2017-10-12] MEDS: GABAPENTIN 300 MG CAP PO SCH ×3 (10:32→18:23)
[2017-10-12] MEDS: DOCUSATE SODIUM 50 MG/SENNA 8.6 MG TAB PO SCH ×2 (10:33→21:00)
[2017-10-12] MEDS: ENOXAPARIN SODIUM 40 MG/0.4 ML SYRINGE SQ SCH (10:34)
[2017-10-12] MEDS: LIDOCAINE HCL 5% PATCH T-DERMAL SCH (10:34)
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
[2017-10-12] MEDS: REMOVE OLD PATCH-LIDOCAINE T-DERMAL SCH (21:00)
--- NOTE | 2017-10-12 22:50 | EKG ---
Date Performed: 10/11/2017 Time Performed: 17:47:03 PTAGE: 47 years EKG: Sinus rhythm NORMAL ECG NO PREVIOUS TRACING DOCTOR: Radha Cleveland Interpretating Date/Time 10/12/2017 22:48:02
[2017-10-13] VITALS (8 sets, daily range): BP systolic 115–163; BP diastolic 52–67; PULSE 80–113; RESP 16–22; TEMP 98.2–98.9; O2SAT 94–98
--- NOTE | 2017-10-13 05:27 | RADRPT ---
EXAM DATE/TIME: 10/13/2017 04:15 [facility] COMPARISON: CHEST SINGLE AP, October 12, 2017, 4:34. INDICATIONS : Shortness of breath MEDICAL HISTORY : Left pneumothorax SURGICAL HISTORY : Left chest tube, aortic graft ENCOUNTER: Subsequent ACUITY: 1 week PAIN SCORE: 7/10 LOCATION: Bilateral chest FINDINGS: Mild bibasilar atelectasis and small pleural effusions unchanged. 2 left chest tubes remain. No pneum othorax. Heart size stable and within normal limits. Aortic stent graft again noted. CONCLUSION: 1. No pneumothorax. 2 left chest tubes remain in place. 2. Mild atelectasis and small effusions at both bases not significantly changed. Olman Lopez MD on October 13, 2017 at 5:24 Board Certified Radiologist. This report was verified electronically.
[2017-10-13] MEDS: METHOCARBAMOL 500 MG TAB PO SCH ×3 (06:00→21:08)
[2017-10-13] MEDS: GABAPENTIN 300 MG CAP PO SCH ×3 (09:00→18:00)
[2017-10-13] MEDS: BACITRACIN TOP OINT 15 GM TUBE TOP SCH ×2 (09:00→21:00)
[2017-10-13] MEDS: FAMOTIDINE 20 MG TAB PO SCH ×2 (09:00→21:08)
[2017-10-13] MEDS: DOCUSATE SODIUM 50 MG/SENNA 8.6 MG TAB PO SCH ×2 (10:31→21:00)
[2017-10-13] MEDS: MULTIVITAMINS/MINERALS THERAPEUTIC TAB PO SCH (10:31)
[2017-10-13] MEDS: MAGNESIUM HYDROXIDE SUSP 30 ML CUP PO SCH ×2 (10:31→21:09)
[2017-10-13] MEDS: LIDOCAINE HCL 5% PATCH T-DERMAL SCH (10:32)
[2017-10-13] MEDS: SODIUM CHLORIDE 0.9% FLUSH 10 ML FLUSH IV FLUSH SCH ×2 (10:32→21:10)
[2017-10-13] MEDS: ENOXAPARIN SODIUM 40 MG/0.4 ML SYRINGE SQ SCH (11:38)
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
[2017-10-13] MEDS: REMOVE OLD PATCH-LIDOCAINE T-DERMAL SCH (21:00)
[2017-10-14 04:25] VITALS: BP 136/70; PULSE 91; RESP 16; TEMP 97.8; O2SAT 97
[2017-10-14] MEDS: METHOCARBAMOL 500 MG TAB PO SCH ×3 (05:44→22:08)
--- NOTE | 2017-10-14 07:11 | RADRPT ---
EXAM DATE/TIME: 10/14/2017 06:08 [facility] COMPARISON: CHEST SINGLE AP, October 13, 2017, 4:15. INDICATIONS : Post removal of one chest tube from left side MEDICAL HISTORY : left pneumothorax SURGICAL HISTORY : left chest tube, aortic graft ENCOUNTER: Subsequent ACUITY: 1 week PAIN SCORE: Non-responsive. LOCATION: Left chest FINDINGS: AP portable upright view of the chest is obtained in expiration. There has been interval removal of o ne of the left-sided chest tubes. No visible left-sided pneumothorax is present. There is slight impr benjy aeration of the bilateral lung bases with residual left lower lobe atelectasis present. Heart si ze is normal. Aortic stent. Osseous structures are unremarkable. CONCLUSION: Interval removal of one of the left-sided chest tubes. No visible pneumothorax. Slightly improved johnathon g exam.. Judith Koch MD on October 14, 2017 at 7:08 Board Certified Radiologist. This report was verified electronically.
[2017-10-14 08:00] VITALS: BP 121/58; PULSE 91; RESP 15; TEMP 97.6; O2SAT 95
[2017-10-14] MEDS: MULTIVITAMINS/MINERALS THERAPEUTIC TAB PO SCH (08:12)
[2017-10-14] MEDS: DOCUSATE SODIUM 50 MG/SENNA 8.6 MG TAB PO SCH ×2 (08:12→19:40)
[2017-10-14] MEDS: MAGNESIUM HYDROXIDE SUSP 30 ML CUP PO SCH ×2 (08:12→19:40)
[2017-10-14] MEDS: FAMOTIDINE 20 MG TAB PO SCH ×2 (08:12→19:40)
[2017-10-14] MEDS: LIDOCAINE HCL 5% PATCH T-DERMAL SCH (08:13)
[2017-10-14] MEDS: BACITRACIN TOP OINT 15 GM TUBE TOP SCH ×2 (08:28→19:40)
[2017-10-14] MEDS: SODIUM CHLORIDE 0.9% FLUSH 10 ML FLUSH IV FLUSH SCH ×2 (09:00→19:40)
[2017-10-14] MEDS: GABAPENTIN 300 MG CAP PO SCH ×3 (09:00→18:25)
[2017-10-14 12:00] VITALS: BP 128/70; PULSE 92; RESP 15; TEMP 97.7; O2SAT 96
[2017-10-14] MEDS: ENOXAPARIN SODIUM 40 MG/0.4 ML SYRINGE SQ SCH (12:10)
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
[2017-10-14 16:00] VITALS: BP 114/69; PULSE 99; RESP 15; TEMP 97.7; O2SAT 97
[2017-10-14] MEDS: REMOVE OLD PATCH-LIDOCAINE T-DERMAL SCH (19:40)
[2017-10-14 20:35] VITALS: BP 129/67; PULSE 96; RESP 16; TEMP 98.1; O2SAT 94
[2017-10-14 20:36] LABS: AMORPHOUS SEDIMENT, URINE OCC; BACTERIA, URINE MANY /hpf; BILIRUBIN, URINE NEG (NEG); BLOOD, URINE NEG (NEG); GLUCOSE,URINE NEG (NEG); KETONE, URINE NEG (NEG); MUCUS URINE FEW /lpf (OCC); NITRITE,URINE POS (NEG); PH, URINE 7.5 (5.0-8.5); SQUAMOUS EPITHELIAL CELL URINE 2 /hpf (0-5); URINE COLOR LIGHT-YELLOW (YELLW/STRAW); URINE LEUKOCYTE ESTERASE NEG (NEG)
[2017-10-15 00:40] VITALS: BP 119/58; PULSE 97; RESP 16; TEMP 98.6; O2SAT 96
[2017-10-15 04:30] VITALS: BP 118/61; PULSE 80; RESP 16; TEMP 97.8; O2SAT 97
[2017-10-15] MEDS: METHOCARBAMOL 500 MG TAB PO SCH ×3 (05:13→21:09)
--- NOTE | 2017-10-15 06:11 | RADRPT ---
EXAM DATE/TIME: 10/15/2017 05:03 [facility] COMPARISON: CHEST SINGLE AP, October 14, 2017, 6:08. INDICATIONS : Shortness of breath. Evaluate for left pneumothorax. MEDICAL HISTORY : Left pneumothorax SURGICAL HISTORY : Left chest tube, aortic graft ENCOUNTER: Subsequent ACUITY: 2 weeks PAIN SCORE: Non-responsive. LOCATION: Left chest FINDINGS: A single portable frontal view of the chest shows a left thoracostomy tube without pneumothorax. Cons olidation within the left base is stable. Endograft within the descending aorta. Heart is normal in s ize. CONCLUSION: No pneumothorax. Persistent consolidation within the left base. Armando Hdez Jr., MD on October 15, 2017 at 6:08 Board Certified Radiologist. This report was verified electronically.
[2017-10-15 08:00] VITALS: BP 120/58; PULSE 90; RESP 18; TEMP 98.4; O2SAT 97
[2017-10-15] MEDS: LIDOCAINE HCL 5% PATCH T-DERMAL SCH (08:53)
[2017-10-15] MEDS: MAGNESIUM HYDROXIDE SUSP 30 ML CUP PO SCH (08:56)
[2017-10-15] MEDS: SODIUM CHLORIDE 0.9% FLUSH 10 ML FLUSH IV FLUSH SCH ×2 (08:57→21:09)
[2017-10-15] MEDS: BACITRACIN TOP OINT 15 GM TUBE TOP SCH ×2 (08:59→21:09)
[2017-10-15] MEDS: GABAPENTIN 300 MG CAP PO SCH ×3 (09:00→18:00)
[2017-10-15] MEDS: FAMOTIDINE 20 MG TAB PO SCH ×2 (09:00→21:12)
[2017-10-15] MEDS: MULTIVITAMINS/MINERALS THERAPEUTIC TAB PO SCH (09:00)
[2017-10-15] MEDS: DOCUSATE SODIUM 50 MG/SENNA 8.6 MG TAB PO SCH ×2 (09:00→21:12)
[2017-10-15] MEDS: ENOXAPARIN SODIUM 40 MG/0.4 ML SYRINGE SQ SCH (10:52)
[2017-10-15 12:47] VITALS: BP 124/59; PULSE 99; RESP 19; TEMP 97.7; O2SAT 97
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
[2017-10-15 16:00] VITALS: BP 109/56; PULSE 104; RESP 19; TEMP 97.9; O2SAT 97
[2017-10-15 20:00] VITALS: BP 118/59; PULSE 96; RESP 17; TEMP 98.4; O2SAT 97
[2017-10-15] MEDS: REMOVE OLD PATCH-LIDOCAINE T-DERMAL SCH (21:13)
[2017-10-16] VITALS: BP 112/59; PULSE 100; RESP 17; TEMP 98.4; O2SAT 96
[2017-10-16] MEDS: MAGNESIUM HYDROXIDE SUSP 30 ML CUP PO SCH ×3 (00:09→21:29)
[2017-10-16 04:18] LABS: AUTOMATED NEUTROPHIL # 4.8 TH/MM3 (1.8-7.7); BASOPHIL # 0.1 TH/MM3 (0-0.2); BASOPHIL % 0.9 % (0.0-2.0); EOSINOPHIL # 0.1 TH/MM3 (0-0.4); EOSINOPHIL % 0.9 % (0.0-4.0); HEMATOCRIT 31.1 % (35.0-46.0); HEMOGLOBIN 10.4 GM/DL (11.6-15.3); LYMPH % 19.2 % (9.0-44.0); LYMPHOCYTE # 1.4 TH/MM3 (1.0-4.8); MEAN CORPUSCULAR HEMOGLOBIN 30.4 PG (27.0-34.0); MEAN CORPUSCULAR HGB CONC 33.4 % (32.0-36.0); MEAN PLATELET VOLUME 6.4 FL (7.0-11.0); MONO % 13.1 % (0.0-8.0); NEUT % 65.9 % (16.0-70.0); PLATELET COUNT 499 TH/MM3 (150-450); RED BLOOD COUNT 3.42 MIL/MM3 (4.00-5.30); RED CELL DISTRIBUTION WIDTH 14.3 % (11.6-17.2); WHITE BLOOD COUNT 7.3 TH/MM3 (4.0-11.0)
[2017-10-16 04:39] LABS: ALBUMIN 2.3 GM/DL (3.4-5.0); AST (GOT) 37 U/L (15-37); BICARBONATE 29.4 MEQ/L (21.0-32.0); BLOOD UREA NITROGEN 12 MG/DL (7-18); CHLORIDE 104 MEQ/L (98-107); CREATININE 0.58 MG/DL (0.50-1.00); GLOMERULAR FILTRATION RATE 111 ML/MIN (>89); GLUCOSE,RANDOM 102 MG/DL (74-106); SODIUM (NA) 141 MEQ/L (136-145)
[2017-10-16 04:42] LABS: ALKALINE PHOSPHATASE 141 U/L (45-117); ALT (GPT) 57 U/L (10-53); TOTAL BILIRUBIN ADULT 0.3 MG/DL (0.2-1.0); TOTAL PROTEIN 6.9 GM/DL (6.4-8.2)
--- NOTE | 2017-10-16 05:33 | RADRPT ---
EXAM DATE/TIME: 10/16/2017 04:12 [facility] COMPARISON: CHEST SINGLE AP, October 15, 2017, 5:03. INDICATIONS : Post chest tube removal. MEDICAL HISTORY : Left pneumothorax. SURGICAL HISTORY : Appendectomy. Chest tube palcement, left side. ENCOUNTER: Subsequent ACUITY: 2 weeks PAIN SCORE: 0/10 LOCATION: Bilateral chest FINDINGS: Left chest tube has been removed. No pneumothorax. Consolidation within the left base with tiny effus ion is unchanged. Right lung is clear. Heart is normal. Aortic stent graft. CONCLUSION: No pneumothorax following chest tube removal. Persistent left basilar consolidation with questionable tiny effusion. Armando Hdez Jr., MD on October 16, 2017 at 5:29 Board Certified Radiologist. This report was verified electronically.
[2017-10-16] MEDS: METHOCARBAMOL 500 MG TAB PO SCH ×3 (06:00→21:30)
[2017-10-16 08:00] VITALS: BP 119/60; PULSE 77; RESP 16; TEMP 98.9; O2SAT 97
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
[2017-10-16] MEDS: SODIUM CHLORIDE 0.9% FLUSH 10 ML FLUSH IV FLUSH SCH ×2 (09:00→21:29)
[2017-10-16] MEDS: BACITRACIN TOP OINT 15 GM TUBE TOP SCH ×2 (09:00→21:30)
[2017-10-16] MEDS: FAMOTIDINE 20 MG TAB PO SCH ×2 (09:00→21:29)
[2017-10-16] MEDS: GABAPENTIN 300 MG CAP PO SCH ×3 (09:00→18:00)
[2017-10-16] MEDS: MULTIVITAMINS/MINERALS THERAPEUTIC TAB PO SCH (09:00)
[2017-10-16] MEDS: DOCUSATE SODIUM 50 MG/SENNA 8.6 MG TAB PO SCH ×2 (09:00→21:29)
[2017-10-16] MEDS: LIDOCAINE HCL 5% PATCH T-DERMAL SCH (09:06)
[2017-10-16] MEDS: NITROFURANTOIN MONOHYD MACROCR 100 MG CAP PO SCH ×2 (09:32→18:48)
[2017-10-16] MEDS: ENOXAPARIN SODIUM 40 MG/0.4 ML SYRINGE SQ SCH (12:16)
[2017-10-16 12:30] VITALS: BP 124/63; PULSE 86; RESP 18; TEMP 97.6; O2SAT 98
[2017-10-16 16:36] VITALS: BP 119/68; PULSE 103; RESP 16; TEMP 98.3; O2SAT 98
[2017-10-16] MEDS ORDERED: NITR100C4 PO (16:38)
[2017-10-16] MEDS ORDERED: NEUR300C PO (16:38)
[2017-10-16 19:00] VITALS: BP 113/81; PULSE 80; RESP 16; TEMP 98.4; O2SAT 98
[2017-10-16] MEDS: REMOVE OLD PATCH-LIDOCAINE T-DERMAL SCH (21:33)
[2017-10-16 23:28] VITALS: BP 117/64; PULSE 91; RESP 16; TEMP 98.3; O2SAT 99
[2017-10-17 03:28] VITALS: BP 124/57; PULSE 89; RESP 16; TEMP 98; O2SAT 98
[2017-10-17] MEDS: METHOCARBAMOL 500 MG TAB PO SCH ×2 (04:25→13:42)
[2017-10-17 08:00] VITALS: BP 108/59; PULSE 85; RESP 15; TEMP 98.5; O2SAT 97
[2017-10-17] MEDS: MAGNESIUM HYDROXIDE SUSP 30 ML CUP PO SCH (08:17)
[2017-10-17] MEDS: MULTIVITAMINS/MINERALS THERAPEUTIC TAB PO SCH (08:17)
[2017-10-17] MEDS: NITROFURANTOIN MONOHYD MACROCR 100 MG CAP PO SCH ×2 (08:17→17:07)
[2017-10-17] MEDS: GABAPENTIN 300 MG CAP PO SCH ×3 (08:17→17:06)
[2017-10-17] MEDS: DOCUSATE SODIUM 50 MG/SENNA 8.6 MG TAB PO SCH (08:17)
[2017-10-17] MEDS: BACITRACIN TOP OINT 15 GM TUBE TOP SCH (08:18)
[2017-10-17] MEDS: LIDOCAINE HCL 5% PATCH T-DERMAL SCH (08:18)
[2017-10-17] MEDS: FAMOTIDINE 20 MG TAB PO SCH ×2 (08:18→08:24)
[2017-10-17] MEDS: SODIUM CHLORIDE 0.9% FLUSH 10 ML FLUSH IV FLUSH SCH (08:19)
[2017-10-17] MEDS: ENOXAPARIN SODIUM 40 MG/0.4 ML SYRINGE SQ SCH (10:37)
[2017-10-17 12:00] VITALS: BP 124/60; PULSE 96; RESP 15; TEMP 98.2; O2SAT 98
[2017-10-17] MEDS ORDERED: WALKER WHEELS/F1 MIS (14:50)
[2017-10-17 16:00] VITALS: BP 121/57; PULSE 97; RESP 16; TEMP 98; O2SAT 98
== END 2017-10-17 20:23 | disposition home or self-care (01) | DRG 957 ==
LOC: NEPI 15:58 → NEDA 17:17 → EDBD 17:17 → HPAC 10-02 00:50 → N03A 10-02 08:35 → N07B 10-03 20:50 → N03A 10-10 23:05 → N03B 10-11 14:30 → N06A 10-13 15:49
PROVIDERS: ADMIT Surgery; ATTEND Surgery
PROC: 0S9F0ZZ Drainage of Right Ankle Joint, Open Approach (ICD-10-PCS; 2017-10-01)
PROC: 0SH Lower Joints, Insertion (ICD-10-PCS; 2017-10-01)
PROC: 02Q Heart and Great Vessels, Repair (ICD-10-PCS; 2017-10-01)
PROC: 02VW3DZ Restriction of Thoracic Aorta, Descending with Intraluminal Device, Percutaneous Approach (ICD-10-PCS; 2017-10-01)
PROC: 0QSLXZZ Reposition Right Tarsal, External Approach (ICD-10-PCS; 2017-10-01)
PROC: 30233N1 Transfusion of Nonautologous Red Blood Cells into Peripheral Vein, Percutaneous Approach (ICD-10-PCS; 2017-10-01)
PROC: 0W9B30Z Drainage of Left Pleural Cavity with Drainage Device, Percutaneous Approach (ICD-10-PCS; 2017-10-01)
PROC: 5A1935Z Respiratory Ventilation, Less than 24 Consecutive Hours (ICD-10-PCS; 2017-10-01)
PROC: 0SS Lower Joints, Reposition (ICD-10-PCS; principal; 2017-10-01 19:50)
PROC: 0HQ0XZZ Repair Scalp Skin, External Approach (ICD-10-PCS; 2017-10-02)
PROC: 0W9B30Z Drainage of Left Pleural Cavity with Drainage Device, Percutaneous Approach (ICD-10-PCS; 2017-10-10)
DX: S25.02 Major laceration of thoracic aorta (principal); T79.4XXA Traumatic shock, initial encounter; S06.5X9A Traumatic subdural hemorrhage with loss of consciousness of unspecified duration, initial encounter; S26.00XA Unspecified injury of heart with hemopericardium, initial encounter; S27.1XXA Traumatic hemothorax, initial encounter; S22.41XA Multiple fractures of ribs, right side, initial encounter for closed fracture; J93.82 Other air leak; S92.001B Unspecified fracture of right calcaneus, initial encounter for open fracture; S27.322A Contusion of lung, bilateral, initial encounter; J98.11 Atelectasis; N39.0 Urinary tract infection, site not specified; S25.09XA Other specified injury of thoracic aorta, initial encounter; S93.01XA Subluxation of right ankle joint, initial encounter; S01.01XA Laceration without foreign body of scalp, initial encounter; V44.6XXA Car passenger injured in collision with heavy transport vehicle or bus in traffic accident, initial encounter; Y92.410 Unspecified street and highway as the place of occurrence of the external cause; Y99.9 Unspecified external cause status; Y93.89 Activity, other specified; S00.93XA Contusion of unspecified part of head, initial encounter
CPT/HCPCS: 27846; 33881; 34713; 36200; 36430; 70450; 70486; 71045; 71260; 72125; 72129; 72132; 72170; 73600; 73610; 74177; 75605; 75957; 76000; 76937; 80048; 80053; 81001; 82805; 83735; 84100; 84155; 84702; 85007; 85025; 85027; 85610; 85730; 86850; 86900; 86901; 86920; 87077; 87086; 87186; 87641; 90471; 90715; 93005; 93306; 94003; 94150; 94640; 94664; 94667; 94668; 96361; 96374; 96375; 99152; 99153; 99291; C1713; C1751; C1760; C1769; C1887; C1894; C9113; G0390; J0131; J0330; J0690; J1580; J1630; J1650; J1953; J2250; J2270; J2370; J3010; J3370; J7030; J7040; J7050; J7120; P9016; Q9967

== ENCOUNTER 2017-11-09 10:27 | Inpatient (IN) | payer SELFPAY ==
[~2017-11-09] VITALS: Ht 157.5 cm; Wt 61.0 kg
[~2017-11-09 10:27] MED LIST changes: +ACETAMINOPHEN 1000 MG/100 ML 100 ML IV ONE; +ASPI-183 PO; -LACTATED RINGER'S 1000 ML INJ 3,000 ML IV ONE; +NORC5TAB PO; -NORMOSOL R INJ 1,000 ML IV ONE; -PHENYLEPH/NS 1000 MCG/10 ML SYR IV ONE; -PROPOFOL 200 MG/20 ML AMP IV ONE; -SODIUM CHLORID 0.9% 500 ML INJ 1,000 ML IV ONE; -SODIUM CHLORIDE 0.9% 20 ML VIAL IV ONE; -STERILE WATER FOR INJECTION 20 ML VIAL IV ONE; -SUCCINYLCHOLINE CHLORIDE 200 MG/10 ML VIAL IV ONE; -VECURONIUM BROMIDE 20 MG VIAL IV ONE; +WALKER WHEELS/F1 MIS
[2017-11-09] MEDS ORDERED: ENOX40P SQ (11:54)
[2017-11-09] MEDS ORDERED: ceFAZolin 2 GM PREMIX 50 ML ONE (11:55)
[2017-11-09] MEDS ORDERED: GENTAMICIN SULFATE 80 MG/2 ML VIAL ONE (11:55)
[2017-11-09 11:58] LABS: AUTOMATED NEUTROPHIL # 3.2 TH/MM3 (1.8-7.7); BASOPHIL % 0.8 % (0.0-2.0); EOSINOPHIL # 0.1 TH/MM3 (0-0.4); EOSINOPHIL % 1.4 % (0.0-4.0); HEMATOCRIT 38.7 % (35.0-46.0); LYMPH % 27.3 % (9.0-44.0); LYMPHOCYTE # 1.4 TH/MM3 (1.0-4.8); MEAN CORPUSCULAR HEMOGLOBIN 29.8 PG (27.0-34.0); MEAN CORPUSCULAR HGB CONC 33.5 % (32.0-36.0); MEAN PLATELET VOLUME 6.9 FL (7.0-11.0); MONO % 9.3 % (0.0-8.0); MONOCYTE # 0.5 TH/MM3 (0-0.9); NEUT % 61.2 % (16.0-70.0); PLATELET COUNT 328 TH/MM3 (150-450); RED BLOOD COUNT 4.35 MIL/MM3 (4.00-5.30); RED CELL DISTRIBUTION WIDTH 14.7 % (11.6-17.2); WHITE BLOOD COUNT 5.3 TH/MM3 (4.0-11.0)
[2017-11-09] MEDS ORDERED: ePHEDrine/NS 25 MG/5 ML SYRINGE IV ONE (12:00)
[2017-11-09] MEDS ORDERED: DEXAMETHASONE SOD PHOS 4 MG/ML VIAL IV ONE (12:00)
[2017-11-09] MEDS ORDERED: ONDANSETRON HCL 4 MG/2 ML VIAL IV ONE (12:00)
[2017-11-09] MEDS ORDERED: LIDOCAINE HCL 1% PF 5 ML SYRINGE OTHER ONE (12:00)
[2017-11-09] MEDS ORDERED: PROPOFOL 200 MG/20 ML AMP IV ONE (12:00)
[2017-11-09] MEDS ORDERED: CHLORHEXIDINE GLUCONATE 4% SOLN 120 ML BTL TOPICAL SCH (12:15)
[2017-11-09] MEDS ORDERED: POVIDONE IODINE 7.5% SCRUB 118 ML BOTTLE TOPICAL SCH (12:15)
[2017-11-09] MEDS ORDERED: CHLORHEXIDINE GLUCONATE 2 % 1 PACK (2 CLOTHS) TOPICAL PRN (12:15)
[2017-11-09] MEDS ORDERED: LACTATED RINGER'S 1000 ML IV PRN (12:15)
[2017-11-09] MEDS ORDERED: SODIUM CHLORID 0.9% 500 ML IV PRN (12:15)
[2017-11-09] MEDS ORDERED: METOPROLOL TARTRATE 25 MG TAB PO PRN (12:15)
[2017-11-09] MEDS ORDERED: POVIDONE IODINE 5% (ANTISEPSIS KIT) 4 APPLICATIONS EACH NARE PRN (12:15)
[2017-11-09 12:17] LABS: BICARBONATE 25.7 MEQ/L (21.0-32.0); CALCIUM 9.3 MG/DL (8.5-10.1); CREATININE 0.67 MG/DL (0.50-1.00)
[2017-11-09] MEDS ORDERED: BUPIVACAINE HCL PF 0.5% 30 ML VIAL ONE (12:35)
[2017-11-09] MEDS ORDERED: MORPHINE SULFATE 4 MG/ML INJ IV PUSH PRN (14:30)
[2017-11-09] MEDS ORDERED: MAGNESIUM HYDROXIDE SUSP 30 ML CUP PO PRN (14:30)
[2017-11-09] MEDS ORDERED: ONDANSETRON ODT 4 MG TAB PO PRN (14:30)
[2017-11-09] MEDS ORDERED: diphenhydrAMINE HCL 25 MG CAP PO PRN (14:30)
[2017-11-09] MEDS ORDERED: Post-op Orders (for Pharmacy) XX ONE (14:30)
[2017-11-09] MEDS ORDERED: NALOXONE HCL 0.4 MG/ML AMP IV PUSH PRN (14:30)
[2017-11-09] MEDS ORDERED: PHARMACY INFORMATION XX ONE (14:30)
[2017-11-09] MEDS ORDERED: ACETAMINOPHEN/HYDROcodone 325 MG/5 MG TAB PO PRN ×2 (14:30)
[2017-11-09] MEDS ORDERED: NURSING INFORMATION XX PRN (14:30)
--- NOTE | 2017-11-09 14:32 | PD.OP ---
cc: George Pastor MD Operative Report Date of Surgery: November 09, 2017 Preoperative Diagnosis: Right ankle previous open reduction of open subtalar dislocation with application of multiplane external fixator. Right ankle stiffness. Right ankle medial and posterior wound Postoperative Diagnosis: Same Procedure: Right ankle planned/staged removal of external fixator, manipulation under anesthesia with fluoroscopic evaluation, and irrigation and debridement of skin , deep soft tissues and bone. Anesthesia: General Surgeon: George Pastor Emt/Paramedic(s): MARIBEL Bolaños The surgical procedure was assisted by my Advanced Registered Nurse Practitioner. My AUTO COLLISION REPAIR INSTRUCTOR presence was necessary throughout this case for the manipulation and positioning of the surgical extremity. My AUTO COLLISION REPAIR INSTRUCTOR was assisting me throughout the duration of this procedure. The skill set of an Advance Registered Nurse Practitioner was medically necessary to complete this procedure. During the surgical case, the surgical scrub technician was working at the back table and the Advance Registered Nurse Practitioner was directly assisting me. Operation and Findings: This patient had previous open treatment of an irreducible subtalar dislocation which was opened with a significant traumatic wound. The patient did well with an external fixator. She is being brought back to the operative theater for removal of the external fixator with manipulation under anesthesia and fluoroscopic evaluation and evaluation of the soft tissues with possible debridement. She understood the risks and benefits of surgical management. The surgery was done as a staged procedure. The patient was brought back to the operative theater. General anesthesia was administered. She received intravenous Ancef. The previous external fixator was broken down with retention only of the pins. The right lower extremity was prepped and draped in usual sterile fashion with the pins in place. We then removed all of the pins including the trans-calcaneal pin. No signs of infection were noted. We manipulated the ankle. There was moderate stiffness noted about the ankle. We performed live fluoroscopic analysis of the ankle which showed no residual subluxation, or dynamic instability of the ankle, subtalar, or talonavicular joints. We debrided the soft tissue over the medial aspect of the ankle and the posterior heel. The posterior heel had a small area of full-thickness necrosis which was debrided with no signs of infection. No exposed bone was noted posteriorly. We left a small area of adherent eschar. The medial aspect of the ankle was debrided and once we remove the eschar we found that there was a wound which measured 6 cm x 2 cm where there was retracted thickened skin edges. The underlying tissues did have some grayish discoloration. We sharply debrided these. There was a small area tracking down to the posterior medial malleolar region with a previous tendon dislocations had taken place. We curetted down to the bone in this area. No purulence was identified. We sharply debrided edges of the skin. We found a little bit of residual hematoma but again no purulence. We thoroughly irrigated superficial and deep structures. Based on the wound configuration and size we decided to place a wound VAC on the ankle. Postoperative plan will be for staged closure which may require flap versus skin grafting. We will talk to the trauma orthopedic surgeon versus plastic surgery as far as managing this problem. At this point as far as the ankle is concerned she will remain nonweightbearing but she can start range of motion and strengthening exercises of the ankle. George Pastor MD November 09, 2017 14:32
[2017-11-09] MEDS ORDERED: DO NOT ADM ANY ANTICOAGULANT DRUGS PRN (14:33)
[2017-11-09] MEDS ORDERED: WALKER WHEELS/F1 MIS (14:51)
[2017-11-09] MEDS ORDERED: MIDAZOLAM HCL 2 MG/2 ML VIAL ONE (14:54)
[2017-11-09] MEDS: DEXT 5%-NACL 0.45% 1000 ML INJ 1,000 ML IV SCH (15:00)
--- NOTE | 2017-11-09 16:04 | RADRPT ---
EXAM DATE/TIME: 11/09/2017 13:54 [facility] COMPARISON: ANKLE RIGHT LIMITED (AP&LAT), October 01, 2017, 15:51. INDICATIONS : Manipulation of right ankle. MEDICAL HISTORY : Unobtainable. SURGICAL HISTORY : Unobtainable. ENCOUNTER: [facility] ACUITY: 1 month PAIN SCORE: Non-responsive. LOCATION: Right ankle. FINDINGS: Two view examination was performed of the right ankle. The bony structures are in normal alignment. No evidence of fracture, dislocation, or soft tissue swelling. No radiopaque foreign bodies are see n. Bony mineralization is normal. CONCLUSION: Anatomic alignment. Wild Delgado MD FACR on November 09, 2017 at 16:00 Board Certified Radiologist. This report was verified electronically.
[2017-11-09 20:00] VITALS: BP 123/62; PULSE 95; RESP 18; TEMP 98; O2SAT 95
[2017-11-09] MEDS: DOCUSATE SODIUM 50 MG/SENNA 8.6 MG TAB PO SCH (20:29)
[2017-11-10 00:01] VITALS: BP 135/60; PULSE 97; RESP 18; TEMP 97.7; O2SAT 98
[2017-11-10] MEDS: DEXT 5%-NACL 0.45% 1000 ML INJ 1,000 ML IV SCH ×4 (01:00→20:08)
[2017-11-10 04:00] VITALS: BP 113/55; PULSE 96; RESP 18; TEMP 98.2; O2SAT 96
[2017-11-10 07:31] VITALS: BP 100/53; PULSE 75; RESP 19; TEMP 98; O2SAT 97
[2017-11-10] MEDS: MULTIVITAMINS/MINERALS THERAPEUTIC TAB PO SCH ×2 (08:14→08:17)
[2017-11-10] MEDS: DOCUSATE SODIUM 50 MG/SENNA 8.6 MG TAB PO SCH ×2 (08:14→08:16)
[2017-11-10 11:39] VITALS: BP 111/65; PULSE 81; RESP 19; TEMP 97.9; O2SAT 98
[2017-11-10 15:34] VITALS: BP 129/60; PULSE 82; RESP 19; TEMP 98.2; O2SAT 97
--- NOTE | 2017-11-10 18:15 | PD.ORT.PN ---
Subjective Subjective Remarks Patient is resting comfortably in bed with minimal pain. Objective Vitals Vital Signs Date Time Temp Pulse Resp B/P (MAP) Pulse Ox O2 Delivery O2 Flow Rate FiO2 11/10/17 15:34 98.2 82 19 129/60 (83) 97 11/10/17 11:39 97.9 81 19 111/65 (80) 98 11/10/17 07:31 98.0 75 19 100/53 (69) 97 11/10/17 04:00 98.2 96 18 113/55 (74) 96 11/10/17 00:01 97.7 97 18 135/60 (85) 98 11/09/17 20:00 98.0 95 18 123/62 (82) 95 I/O 11/09/17 11/09/17 11/09/17 11/10/17 11/10/17 11/10/17 07:00 15:00 23:00 07:00 15:00 23:00 Intake Total 800 ml 420 ml 800 ml Output Total 5 ml Balance 795 ml 420 ml 800 ml Intake Oral 420 ml 800 ml IV Total 800 ml Output Estimated Blood Loss 5 ml # Voids 2 3 # Bowel Movements 0 Result Diagram: 11/09/17 1140 11/09/17 1140 Procedures Right ankle removal of external fixator, manipulation under anesthesia with fluoroscopic evaluation and irrigation and debridement of skin, deep soft tissues. Objective Remarks Dressing is C/D/I. Wound vac in place to suction. Calf is soft and nontender. Patient moves ankle actively. + NVI. + SILT distally Assessment & Plan Assessment and Plan POD #1: Right ankle removal of external fixator, manipulation under anesthesia with fluoroscopic evaluation and irrigation and debridement of skin, deep soft tissues. 1. NWB RLE. Can perform AROM and strengthening. 2. Maintain wound vac. Arrangements made for patient to have wound vac at home. Plan is for 3-4 weeks with wound vac to improve tissue granulation for staged closure with skin graft by Dr. Jo. 3. Ice to the right ankle PRN 4. Stable for discharge once arrangements are made for wound vac 5. F/U in the office with Dr. Pastor or MARIEBL Lal as previously scheduled. Junaid Davis November 10, 2017 18:15
[2017-11-10] MEDS ORDERED: NORC5TAB PO (18:17)
--- NOTE | 2017-11-10 18:22 | HHI.FF ---
Face to Face Verification Diagnosis: (1) Open right ankle fracture Physical Therapy Transfer training, bed to chair, Other Right LE Weight Bearing: Non WB Right LE Range of Motion: Active ROM Additional Instructions Ankle strengthening as well as AROM/PROM Nursing Nursing: Other Additional Instructions Wound VAC to the right lower extremity, 125 mmHg continuous. Change wound VAC 3 times a week, first bush on Tuesday. Change pin site dressings daily and clean with Hibiclens. I have seen patient Sabiha Bauman on 11/10/17. My clinical findings support the need for the requested home health care services because: Limited ability to care for self High risk of falls I certify that my clinical findings support that this patient is homebound because: Post-op weakness Unsteady gait/balance Junaid Davis November 10, 2017 18:22
[2017-11-10 20:00] VITALS: BP 127/58; PULSE 78; RESP 18; TEMP 98.3; O2SAT 94
[2017-11-11] VITALS: BP 121/71; PULSE 78; RESP 18; TEMP 97.9; O2SAT 98
[2017-11-11] MEDS: DEXT 5%-NACL 0.45% 1000 ML INJ 1,000 ML IV SCH ×2 (03:38→07:26)
[2017-11-11 04:00] VITALS: BP 100/53; PULSE 67; RESP 18; TEMP 97.8; O2SAT 97
[2017-11-11 07:26] VITALS: BP 100/58; PULSE 69; RESP 18; TEMP 97.4; O2SAT 97
[2017-11-11] MEDS: DOCUSATE SODIUM 50 MG/SENNA 8.6 MG TAB PO SCH (07:33)
[2017-11-11] MEDS: MULTIVITAMINS/MINERALS THERAPEUTIC TAB PO SCH (07:34)
[2017-11-11 12:11] VITALS: BP 122/60; PULSE 61; RESP 17; TEMP 97.5; O2SAT 96
--- NOTE | 2017-11-11 13:15 | PD.ORT.PN ---
Subjective Post Op Day #: 2 Subjective Remarks Patient is resting comfortably in bed with decreased pain. Patient reports intermittent "twinges of pain." Objective Vitals Vital Signs Date Time Temp Pulse Resp B/P (MAP) Pulse Ox O2 Delivery O2 Flow Rate FiO2 11/11/17 12:11 97.5 61 17 122/60 (80) 96 11/11/17 07:26 97.4 69 18 100/58 (72) 97 11/11/17 04:00 97.8 67 18 100/53 (69) 97 11/11/17 00:00 97.9 78 18 121/71 (88) 98 11/10/17 20:00 98.3 78 18 127/58 (81) 94 11/10/17 15:34 98.2 82 19 129/60 (83) 97 I/O 11/10/17 11/10/17 11/10/17 11/11/17 11/11/17 11/11/17 07:00 15:00 23:00 07:00 15:00 23:00 Intake Total 420 ml 800 ml 340 ml 200 ml Balance 420 ml 800 ml 340 ml 200 ml Intake Oral 420 ml 800 ml 340 ml 200 ml # Voids 2 3 2 # Bowel Movements 0 Result Diagram: 11/09/17 1140 11/09/17 1140 Procedures Right ankle removal of external fixator, manipulation under anesthesia with fluoroscopic evaluation and irrigation and debridement of skin, deep soft tissues. Objective Remarks Dressing is C/D/I. Wound vac in place to suction. Calf is soft and nontender. Patient moves ankle actively. + NVI. + SILT distally Assessment & Plan Ortho Post Op Day #: 2 Problem List: Assessment and Plan POD #2: Right ankle removal of external fixator, manipulation under anesthesia with fluoroscopic evaluation and irrigation and debridement of skin, deep soft tissues. 1. NWB RLE. Can perform AROM and strengthening. 2. Maintain wound vac. Arrangements made for patient to have wound vac at home. Plan is for 3-4 weeks with wound vac to improve tissue granulation for staged closure with skin graft by Dr. Jo. 3. Ice to the right ankle PRN 4. Stable for discharge today once she receives her wound vac. First dressing change today. 5. F/U in the office with Dr. Pastor or MARIBEL Lal as previously scheduled. Junaid Davis November 11, 2017 13:15
[2017-11-11 16:00] VITALS: BP 112/62; PULSE 65; RESP 18; TEMP 98; O2SAT 96
--- NOTE | 2017-11-14 21:19 | HHI.DS ---
Discharge Summary Admission Date November 09, 2017 at 14:39 Discharge Date: November 11, 2017 Admitting Diagnosis open right ankle fracture Diagnosis: (1) Open right ankle fracture Diagnosis: Principal ICD Codes: S82.891B - Other fracture of right lower leg, initial encounter for open fracture type I or II Status: Acute Procedures Right ankle removal of external fixator, manipulation under anesthesia with fluoroscopic evaluation and irrigation and debridement of skin, deep soft tissues. Brief History This is a 47 year old female patient with an initial open right ankle fracture and application of external fixator with staged removal of external fixator, irrigation and debridement with application of wound vac. PE at Discharge Dressing is C/D/I. Wound vac in place to suction. Calf is soft and nontender. Patient moves ankle actively. + NVI. + SILT distally Hospital Course The patient was admitted to the hospital for removal of external fixator from previous open ankle fracture.. The patient's surgery went well without complication. The patient is NWB. The patient is on a regular diet. The patient is on Lovenox followed by [facility] for DVT prophylaxis. The patient was discharged home with home health and will f/u in the office with Dr. Pastor or MARIBEL Lal as previously scheduled. The patient had a wound vac placed to the right ankle and arrangements were made for a home wound vac. Pt Condition on Discharge: Stable Discharge Disposition: Disch w/ Home Health Serv Discharge Instructions Diet Instructions: As Tolerated, No Restrictions Activities You Can Perform: Non Weight Bearing Activities to Avoid: Strenuous Activity Follow up Referrals: Orthopedics with George Pastor MD New Medications: Hydrocodone-Acetaminophen ([place]) 5 Mg-325 Mg Tab 1-2 TAB PO Q4H-6H PRN for PAIN, #50 TAB 0 Refills Walker with Front Wheels (Walker with Front Wheels) 1 Mis Mis EA .XX DIRECTED, #1 0 Refills Discontinued Medications: Enoxaparin Inj (Lovenox Inj) 40 Mg/0.4 Ml Syr 40 MG SQ DAILY for Blood Clot Prevention, SYRINGE 0 Refills Hydrocodone-Acetaminophen ([place]) 5 Mg-325 Mg Tab 1-2 TAB PO Q4H PRN for PAIN, #50 TAB 0 Refills Junaid Davis November 14, 2017 21:19
== END 2017-11-11 18:11 | disposition home health service (06) | DRG 941 ==
LOC: HSDC 10:27 → HSDI 14:39 → N06A 15:49
PROVIDERS: ADMIT Orthopaedic Surgery; ATTEND Orthopaedic Surgery
PROC: 0QPLX5Z Removal of External Fixation Device from Right Tarsal, External Approach (ICD-10-PCS; 2017-11-09)
PROC: 0SSFXZZ Reposition Right Ankle Joint, External Approach (ICD-10-PCS; 2017-11-09)
PROC: 0JBQ0ZZ Excision of Right Foot Subcutaneous Tissue and Fascia, Open Approach (ICD-10-PCS; principal; 2017-11-09 13:08)
DX: S93.04XD Dislocation of right ankle joint, subsequent encounter (principal); S91.001D Unspecified open wound, right ankle, subsequent encounter
CPT/HCPCS: 73600; 76000; 80048; 85025; 94150; J0131; J0690; J1100; J1580; J2250; J2405; J3010